=== PATIENT | male | born 1935 | race Caucasian/White ===

== ENCOUNTER 2017-01-07 20:37 | Inpatient (IN) | payer MEDICARE ==
[~2017-01-07] VITALS: Ht 162.6 cm; Wt 64.0 kg
[~2017-01-07 20:37] MED LIST: ALBU8.5H2 IH; ALBUTEROL INH; AMLO5TAB2 PO; ASP81TEC PO; BETH25TA PO; CEPH500C PO; CIPR-225 PO; CLON-378 PO; CPR500T PO; DARI15TA PO; DARI15TA4 PO; DOCU100T7 PO; FAMO20TA5 PO; FINA5TAB6 PO; HYDR-3454 PO; IPRA3AMP IH; LEVO500T2 PO; METO5TAB79 PO; MTP50T PO; MULT-963 PO; MULT-974 PO; NITR-65 PO; NITR100C3 PO; OMEG10005 PO; PEG250PW PO; PHEN200T27 PO; POLY119P4 PO; POLY17PO23 PO; PRD20T PO; RT-COMBINH IH; SENN1TAB76 PO; SIMV20TA3 PO; TAMS0.4C2 PO; VANC750F IV; VITA-185 PO; VITA1CAP47 PO; ZOLP5TAB6 PO; [UNRECOGNIZED DRUG - OTHER]
[2017-01-07] MEDS ORDERED: NS IV 1000 ML 1,000 ML IV ONE (21:01)
[2017-01-07 22:01] LABS: BASOPHILS % (AUTO) 0 % (0-10); EOSINOPHILS % (AUTO) 0 % (0-10); LYMPHOCYTES # (AUTO) 0.4 X 10^3 (1.0-4.0); LYMPHOCYTES % (AUTO) 2 % (12-44); MEAN CORPUSCULAR HEMOGLOBIN 33 PG (25-34); MEAN CORPUSCULAR HGB CONC 33 G/DL (32-36); MEAN CORPUSCULAR VOLUME 101 FL (80-99); MONOCYTES # (AUTO) 2.5 X 10^3 (0.0-1.0); MONOCYTES % (AUTO) 11 % (0-12); NEUTROPHILS # (AUTO) 20.3 X 10^3 (1.8-7.8); NEUTROPHILS % (AUTO) 87 % (42-75); PLATELET COUNT 167 10^3/uL (130-400); RED BLOOD COUNT 4.23 10^6/uL (4.35-5.85); RED CELL DISTRIBUTION WIDTH 12.5 % (10.0-14.5); WHITE BLOOD COUNT 23.2 10^3/uL (4.3-11.0)
[2017-01-07 22:15] LABS: BAND NEUTROPHILS 15 %; BASOPHILS % (MANUAL) 0 %; EOSINOPHILS % (MANUAL) 0 %; LYMPHOCYTES % (MANUAL) 1 %; NEUTROPHILS % (MANUAL) 76 %
[2017-01-07 22:22] LABS: ALBUMIN 3.6 GM/DL (3.2-4.5); BILIRUBIN,TOTAL 0.5 MG/DL (0.1-1.0); CALCIUM 9.1 MG/DL (8.5-10.1); CREATININE SERUM 2.84 MG/DL (0.60-1.30); POTASSIUM 4.8 MMOL/L (3.6-5.0); TOTAL PROTEIN 6.6 GM/DL (6.4-8.2); hs C REACTIVE PROTEIN 0.32 MG/DL (0.00-0.50)
[2017-01-07] MEDS ORDERED: LEVOFLOXACIN IV 750 MG/150 ML (LEVAQUIN) BAG IV ONE (23:45)
[2017-01-08] VITALS (23 sets, daily range): BP systolic 88–156; BP diastolic 14–116
[2017-01-08] MEDS ORDERED: NS IV 1000 ML 1,000 ML ONE (00:55)
[2017-01-08] MEDS ORDERED: NS IV 1000 ML 1,000 ML IV ONE (01:01)
[2017-01-08] MEDS ORDERED: metroNIDAZOLE 500MG/100ML IVPB 100 ML ONE (02:18)
[2017-01-08] MEDS ORDERED: RT-ALBUTEROL/IPRATROPIUM 3 ML (DUONEB) VIAL ONE (02:18)
[2017-01-08] MEDS: NS IV 1000 ML 1,000 ML IV SCH ×5 (02:36→22:33)
[2017-01-08] MEDS ORDERED: RT-ALBUTEROL/IPRATROPIUM 3 ML (DUONEB) VIAL INH PRN (02:45)
[2017-01-08] MEDS ORDERED: DARI15TA PO (03:28)
[2017-01-08] MEDS ORDERED: CLON0.2T PO (03:28)
[2017-01-08] MEDS ORDERED: FINA5TAB6 PO (03:28)
[2017-01-08] MEDS ORDERED: TAMS0.4C2 PO (03:28)
[2017-01-08] MEDS ORDERED: METO50TA2 PO (03:28)
[2017-01-08] MEDS ORDERED: AMLO5TAB2 PO (03:28)
[2017-01-08] MEDS ORDERED: SIMV20TA3 PO (03:28)
[2017-01-08] MEDS ORDERED: ZOLP5TAB7 PO (03:28)
[2017-01-08] MEDS ORDERED: RT-ALBUTEROL HFA (VENTOLIN) PER PUFF IH PRN (03:30)
[2017-01-08 05:00] LABS: BASOPHILS % (AUTO) 0 % (0-10); EOSINOPHILS % (AUTO) 0 % (0-10); LYMPHOCYTES # (AUTO) 0.3 X 10^3 (1.0-4.0); LYMPHOCYTES % (AUTO) 2 % (12-44); MEAN CORPUSCULAR HEMOGLOBIN 34 PG (25-34); MEAN CORPUSCULAR HGB CONC 33 G/DL (32-36); MEAN CORPUSCULAR VOLUME 103 FL (80-99); MEAN PLATELET VOLUME 9.8 FL (7.4-10.4); MONOCYTES # (AUTO) 2.1 X 10^3 (0.0-1.0); MONOCYTES % (AUTO) 10 % (0-12); NEUTROPHILS # (AUTO) 19.6 X 10^3 (1.8-7.8); NEUTROPHILS % (AUTO) 89 % (42-75); PLATELET COUNT 139 10^3/uL (130-400); RED BLOOD COUNT 3.64 10^6/uL (4.35-5.85); RED CELL DISTRIBUTION WIDTH 12.5 % (10.0-14.5); WHITE BLOOD COUNT 22.1 10^3/uL (4.3-11.0)
[2017-01-08 05:23] LABS: BILIRUBIN,TOTAL 0.5 MG/DL (0.1-1.0); CALCIUM 7.8 MG/DL (8.5-10.1); CREATININE SERUM 2.48 MG/DL (0.60-1.30); MAGNESIUM 2.2 MG/DL (1.8-2.4); PHOSPHORUS 3.1 MG/DL (2.3-4.7); POTASSIUM 4.7 MMOL/L (3.6-5.0); TOTAL PROTEIN 5.3 GM/DL (6.4-8.2); hs C REACTIVE PROTEIN 3.84 MG/DL (0.00-0.50)
[2017-01-08] MEDS: POTASSIUM CL 10MEQ/50ML IVPB 50 ML IV SCH (05:27)
[2017-01-08] MEDS: KCL 20 MEQ TAB (K-DUR) PO SCH (05:27)
[2017-01-08] MEDS: MAGNESIUM 1 GM/100 ML IVPB 100 ML IV SCH (05:27)
[2017-01-08] MEDS ORDERED: metroNIDAZOLE 500MG/100ML IVPB 100 ML IV SCH ×2 (06:00)
[2017-01-08] MEDS: RT-ALBUTEROL/IPRATROPIUM 3 ML (DUONEB) VIAL INH SCH ×4 (06:39→21:35)
[2017-01-08] MEDS: ACETAMINOPHEN 325 MG TABLET/CAPLET (TYLENOL) PO PRN ×3 (06:43→22:33)
[2017-01-08] MEDS ORDERED: ZOLPIDEM 5 MG (AMBIEN) TAB PO PRN (07:00)
[2017-01-08] MEDS ORDERED: MULTIVIT W/MINERALS TAB (THERAGRAN M) PO SCH (07:00)
[2017-01-08] MEDS ORDERED: fentaNYL INJECTION 100 MCG/2 ML AMP ONE (07:17)
[2017-01-08] MEDS ORDERED: fentaNYL INJECTION 100 MCG/2 ML AMP IVP PRN (07:45)
[2017-01-08] MEDS: OMEGA 3 (FISH OIL) 1000 MG CAP PO SCH (08:15)
[2017-01-08] MEDS: FINASTERIDE (PROSCAR) 5 MG TAB PO SCH (08:16)
[2017-01-08] MEDS: metroNIDAZOLE 500MG/100ML IVPB 100 ML IV SCH ×3 (08:16→20:34)
[2017-01-08] MEDS: ASPIRIN E.C. 81 MG (ECOTRIN) TAB PO SCH (08:16)
[2017-01-08] MEDS: meTOprolol TARTRATE 50 MG (LOPRESSOR) TAB PO SCH ×2 (08:16→20:34)
[2017-01-08] MEDS: amLODIPine 5 MG (NORVASC) TAB PO SCH (08:16)
[2017-01-08] MEDS: DOCUSATE SODIUM 100 MG (COLACE) CAP PO SCH ×2 (08:21→20:35)
[2017-01-08] MEDS: SENNA W/DOCUSATE (SENOKOT S) TABLET PO SCH (08:22)
[2017-01-08] MEDS: POLYETHYLENE GLYCOL 17 GM (MIRALAX) PACK PO SCH (08:22)
[2017-01-08] MEDS: MULTIVIT W/MINERALS TAB (THERAGRAN M) PO SCH (08:22)
[2017-01-08] MEDS: DARIFENACIN 7.5 MG PO SCH (08:37)
[2017-01-08] MEDS ORDERED: SIMvastatin 20 MG (ZOCOR) TAB PO SCH (09:00)
[2017-01-08] MEDS ORDERED: cloNIDine 0.2 MG (CATAPRES) TAB PO SCH (09:00)
[2017-01-08] MEDS ORDERED: PIPERACILLIN SODIUM/TAZOBACTAM 4.5 GM in NS (IVPB) 100 ML IV NR (09:40)
[2017-01-08 11:14] LABS: BILIRUBIN,URINE NEGATIVE (NEGATIVE); KETONES,URINE NEGATIVE (NEGATIVE); LEUKOCYTE ESTERASE ,URINE 3+ (NEGATIVE); NITRITE,URINE NEGATIVE (NEGATIVE); PH,URINE 6 (5-9); PROTEIN,URINE 3+ (NEGATIVE); UROBILINOGEN,URINE NORMAL (NORMAL)
[2017-01-08 11:29] LABS: WBC,URINE TNTC /HPF
[2017-01-08] MEDS ORDERED: SENN-109 PO (12:38)
[2017-01-08] MEDS ORDERED: DOCU100C37 PO (12:38)
[2017-01-08] MEDS ORDERED: MULT-35 PO (12:38)
[2017-01-08] MEDS ORDERED: ASPI-983 PO (12:38)
[2017-01-08] MEDS ORDERED: VIT59LIQ SL (12:38)
[2017-01-08] MEDS ORDERED: OMG1KC PO (12:38)
[2017-01-08] MEDS ORDERED: POLY17PO6 PO (12:38)
[2017-01-08] MEDS ORDERED: RT-ALBUINH IH (12:41)
[2017-01-08] MEDS: PIPERACILLIN SODIUM/TAZOBACTAM 4.5 GM in NS (IVPB) 100 ML IV SCH (16:39)
[2017-01-08] MEDS: ALFUZOSIN HCL 10 MG TAB (UROXATRAL) PO SCH (16:40)
[2017-01-08] MEDS: cloNIDine 0.1 MG (CATAPRES) TAB PO SCH (20:35)
[2017-01-08] MEDS: fentaNYL INJECTION 100 MCG/2 ML AMP IVP PRN (21:19)
[2017-01-09] VITALS (16 sets, daily range): BP systolic 117–161; BP diastolic 61–85
[2017-01-09] MEDS ORDERED: ONDANSETRON 4 MG/2 ML (SDV) Z0FRAN ONE
[2017-01-09] MEDS: PIPERACILLIN SODIUM/TAZOBACTAM 4.5 GM in NS (IVPB) 100 ML IV SCH ×3 (00:12→16:54)
[2017-01-09] MEDS: NS IV 1000 ML 1,000 ML IV SCH ×4 (00:25→08:46)
[2017-01-09] MEDS: fentaNYL INJECTION 100 MCG/2 ML AMP IVP PRN ×3 (01:57→17:32)
[2017-01-09] MEDS: RT-ALBUTEROL/IPRATROPIUM 3 ML (DUONEB) VIAL INH SCH ×6 (02:06→22:06)
[2017-01-09] MEDS: metroNIDAZOLE 500MG/100ML IVPB 100 ML IV SCH ×4 (02:51→20:14)
[2017-01-09] MEDS: ONDANSETRON 4 MG/2 ML (SDV) Z0FRAN IV PRN ×2 (02:55→08:46)
[2017-01-09 03:44] LABS: BASOPHILS % (AUTO) 0 % (0-10); EOSINOPHILS % (AUTO) 0 % (0-10); LYMPHOCYTES # (AUTO) 0.4 X 10^3 (1.0-4.0); LYMPHOCYTES % (AUTO) 2 % (12-44); MEAN CORPUSCULAR HEMOGLOBIN 33 PG (25-34); MEAN CORPUSCULAR HGB CONC 33 G/DL (32-36); MEAN CORPUSCULAR VOLUME 101 FL (80-99); MEAN PLATELET VOLUME 9.9 FL (7.4-10.4); MONOCYTES # (AUTO) 1.7 X 10^3 (0.0-1.0); MONOCYTES % (AUTO) 11 % (0-12); NEUTROPHILS # (AUTO) 13.8 X 10^3 (1.8-7.8); NEUTROPHILS % (AUTO) 87 % (42-75); PLATELET COUNT 121 10^3/uL (130-400); RED BLOOD COUNT 3.44 10^6/uL (4.35-5.85); RED CELL DISTRIBUTION WIDTH 12.5 % (10.0-14.5); WHITE BLOOD COUNT 15.8 10^3/uL (4.3-11.0)
[2017-01-09 04:05] LABS: CALCIUM 7.7 MG/DL (8.5-10.1); CREATININE SERUM 1.93 MG/DL (0.60-1.30); MAGNESIUM 1.6 MG/DL (1.8-2.4); PHOSPHORUS 2.8 MG/DL (2.3-4.7); POTASSIUM 3.8 MMOL/L (3.6-5.0)
[2017-01-09] MEDS: MAGNESIUM 1 GM/100 ML IVPB 100 ML IV SCH ×3 (04:37→06:54)
[2017-01-09] MEDS: POTASSIUM CL 10MEQ/50ML IVPB 50 ML IV SCH (06:54)
[2017-01-09] MEDS: KCL 20 MEQ TAB (K-DUR) PO SCH (06:54)
[2017-01-09] MEDS: DOCUSATE SODIUM 100 MG (COLACE) CAP PO SCH (08:03)
[2017-01-09] MEDS: POLYETHYLENE GLYCOL 17 GM (MIRALAX) PACK PO SCH ×3 (08:03→20:14)
[2017-01-09] MEDS: OMEGA 3 (FISH OIL) 1000 MG CAP PO SCH (08:04)
[2017-01-09] MEDS: SENNA W/DOCUSATE (SENOKOT S) TABLET PO SCH (08:04)
[2017-01-09] MEDS: MULTIVIT W/MINERALS TAB (THERAGRAN M) PO SCH (08:04)
[2017-01-09] MEDS: meTOprolol TARTRATE 50 MG (LOPRESSOR) TAB PO SCH ×2 (08:46→20:14)
[2017-01-09] MEDS: DARIFENACIN 7.5 MG PO SCH (08:46)
[2017-01-09] MEDS: ASPIRIN E.C. 81 MG (ECOTRIN) TAB PO SCH (08:46)
[2017-01-09] MEDS: FINASTERIDE (PROSCAR) 5 MG TAB PO SCH (08:46)
[2017-01-09] MEDS: cloNIDine 0.1 MG (CATAPRES) TAB PO SCH ×2 (08:47→20:14)
[2017-01-09] MEDS ORDERED: FUROSEMIDE 40 MG/4 ML INJ (LASIX) IVP ONE (09:00)
[2017-01-09] MEDS ORDERED: FUROSEMIDE 40 MG/4 ML INJ (LASIX) IVP NR (09:00)
[2017-01-09] MEDS: amLODIPine 5 MG (NORVASC) TAB PO SCH (09:52)
[2017-01-09] MEDS: SUCRALFATE 1 GM (CARAFATE) TAB PO SCH ×3 (12:29→20:14)
[2017-01-09] MEDS: PANTOPRAZOLE 40 MG/10 ML (PROTONIX) VIAL IV SCH ×2 (12:29→20:14)
[2017-01-09] MEDS: ACETAMINOPHEN 325 MG TABLET/CAPLET (TYLENOL) PO PRN (16:53)
[2017-01-09] MEDS: ALFUZOSIN HCL 10 MG TAB (UROXATRAL) PO SCH (17:32)
[2017-01-10] VITALS: BP 137/65
[2017-01-10] MEDS: PIPERACILLIN SODIUM/TAZOBACTAM 4.5 GM in NS (IVPB) 100 ML IV SCH ×3 (00:19→16:24)
[2017-01-10] MEDS: metroNIDAZOLE 500MG/100ML IVPB 100 ML IV SCH ×4 (01:54→20:49)
[2017-01-10] MEDS: RT-ALBUTEROL/IPRATROPIUM 3 ML (DUONEB) VIAL INH SCH ×3 (02:00→09:59)
[2017-01-10 04:00] VITALS: BP 138/63
[2017-01-10] MEDS: SUCRALFATE 1 GM (CARAFATE) TAB PO SCH ×4 (05:20→20:50)
[2017-01-10 08:00] VITALS: BP 147/70
[2017-01-10] MEDS: cloNIDine 0.1 MG (CATAPRES) TAB PO SCH ×2 (08:22→20:50)
[2017-01-10] MEDS: meTOprolol TARTRATE 50 MG (LOPRESSOR) TAB PO SCH ×2 (08:22→20:50)
[2017-01-10] MEDS: FINASTERIDE (PROSCAR) 5 MG TAB PO SCH (08:22)
[2017-01-10] MEDS: PANTOPRAZOLE 40 MG/10 ML (PROTONIX) VIAL IV SCH ×2 (08:22→20:50)
[2017-01-10] MEDS: ASPIRIN E.C. 81 MG (ECOTRIN) TAB PO SCH (08:22)
[2017-01-10] MEDS: DARIFENACIN 7.5 MG PO SCH (08:22)
[2017-01-10] MEDS: amLODIPine 5 MG (NORVASC) TAB PO SCH (08:22)
[2017-01-10] MEDS: POLYETHYLENE GLYCOL 17 GM (MIRALAX) PACK PO SCH ×2 (08:23→20:49)
[2017-01-10] MEDS ORDERED: LEVOFLOXACIN 500 MG/100 ML IV 100 ML IV SCH (09:00)
[2017-01-10] MEDS ORDERED: FUROSEMIDE 40 MG/4 ML INJ (LASIX) IVP ONE (09:00)
[2017-01-10] MEDS ORDERED: RT-ALBUTEROL SULF 2.5 MG/3 ML PRE-MIX VIAL IH PRN (10:00)
[2017-01-10 12:28] LABS: BASOPHILS % (AUTO) 0 % (0-10); EOSINOPHILS % (AUTO) 0 % (0-10); LYMPHOCYTES # (AUTO) 0.4 X 10^3 (1.0-4.0); LYMPHOCYTES % (AUTO) 3 % (12-44); MEAN CORPUSCULAR HEMOGLOBIN 33 PG (25-34); MEAN CORPUSCULAR HGB CONC 33 G/DL (32-36); MEAN CORPUSCULAR VOLUME 101 FL (80-99); MEAN PLATELET VOLUME 10.2 FL (7.4-10.4); MONOCYTES # (AUTO) 1.1 X 10^3 (0.0-1.0); MONOCYTES % (AUTO) 8 % (0-12); NEUTROPHILS # (AUTO) 11.1 X 10^3 (1.8-7.8); NEUTROPHILS % (AUTO) 88 % (42-75); PLATELET COUNT 125 10^3/uL (130-400); RED BLOOD COUNT 3.33 10^6/uL (4.35-5.85); RED CELL DISTRIBUTION WIDTH 12.7 % (10.0-14.5); WHITE BLOOD COUNT 12.6 10^3/uL (4.3-11.0)
[2017-01-10] MEDS: ACETAMINOPHEN 325 MG TABLET/CAPLET (TYLENOL) PO PRN ×3 (12:34→22:17)
[2017-01-10 12:40] LABS: ALBUMIN 2.8 GM/DL (3.2-4.5); BILIRUBIN,TOTAL 0.6 MG/DL (0.1-1.0); CALCIUM 8.1 MG/DL (8.5-10.1); CREATININE SERUM 2.47 MG/DL (0.60-1.30); POTASSIUM 3.3 MMOL/L (3.6-5.0); TOTAL PROTEIN 5.3 GM/DL (6.4-8.2)
[2017-01-10] MEDS ORDERED: KCL 20 MEQ TAB (K-DUR) PO ONE (13:15)
[2017-01-10] MEDS: RT-ALBUTEROL SULF 2.5 MG/3 ML PRE-MIX VIAL IH SCH ×3 (14:44→22:00)
[2017-01-10 15:35] VITALS: BP 123/66
[2017-01-10] MEDS: ALFUZOSIN HCL 10 MG TAB (UROXATRAL) PO SCH (17:32)
[2017-01-11] VITALS: BP 119/54
[2017-01-11] MEDS: PIPERACILLIN SODIUM/TAZOBACTAM 4.5 GM in NS (IVPB) 100 ML IV SCH ×4 (00:27→23:58)
[2017-01-11] MEDS: metroNIDAZOLE 500MG/100ML IVPB 100 ML IV SCH ×4 (02:33→20:14)
[2017-01-11] MEDS: RT-ALBUTEROL SULF 2.5 MG/3 ML PRE-MIX VIAL IH SCH ×6 (04:42→22:16)
[2017-01-11] MEDS: SUCRALFATE 1 GM (CARAFATE) TAB PO SCH ×4 (06:36→20:14)
[2017-01-11 06:56] VITALS: BP 119/54
[2017-01-11 07:26] LABS: BASOPHILS % (AUTO) 0 % (0-10); EOSINOPHILS # (AUTO) 0.1 10^3/uL (0.0-0.3); EOSINOPHILS % (AUTO) 1 % (0-10); LYMPHOCYTES # (AUTO) 0.6 X 10^3 (1.0-4.0); LYMPHOCYTES % (AUTO) 6 % (12-44); MEAN CORPUSCULAR HEMOGLOBIN 33 PG (25-34); MEAN CORPUSCULAR HGB CONC 33 G/DL (32-36); MEAN CORPUSCULAR VOLUME 100 FL (80-99); MEAN PLATELET VOLUME 10.7 FL (7.4-10.4); MONOCYTES # (AUTO) 1.1 X 10^3 (0.0-1.0); MONOCYTES % (AUTO) 11 % (0-12); NEUTROPHILS # (AUTO) 7.6 X 10^3 (1.8-7.8); NEUTROPHILS % (AUTO) 81 % (42-75); PLATELET COUNT 139 10^3/uL (130-400); RED BLOOD COUNT 3.24 10^6/uL (4.35-5.85); RED CELL DISTRIBUTION WIDTH 12.6 % (10.0-14.5); WHITE BLOOD COUNT 9.4 10^3/uL (4.3-11.0)
[2017-01-11] MEDS ORDERED: INFLUENZA TRIvalent 2017-2018 0.5 ML/45 MCG SYR IM ONE (07:30)
[2017-01-11 07:47] LABS: ALBUMIN 2.8 GM/DL (3.2-4.5); BILIRUBIN,TOTAL 0.4 MG/DL (0.1-1.0); CREATININE SERUM 2.66 MG/DL (0.60-1.30); POTASSIUM 3.2 MMOL/L (3.6-5.0); TOTAL PROTEIN 5.3 GM/DL (6.4-8.2)
[2017-01-11 08:00] VITALS: BP 139/83
[2017-01-11] MEDS: PANTOPRAZOLE 40 MG/10 ML (PROTONIX) VIAL IV SCH ×2 (08:43→20:08)
[2017-01-11] MEDS: POLYETHYLENE GLYCOL 17 GM (MIRALAX) PACK PO SCH ×2 (08:43→20:14)
[2017-01-11] MEDS: cloNIDine 0.1 MG (CATAPRES) TAB PO SCH ×2 (08:44→20:14)
[2017-01-11] MEDS: meTOprolol TARTRATE 50 MG (LOPRESSOR) TAB PO SCH ×2 (08:44→20:14)
[2017-01-11] MEDS: FINASTERIDE (PROSCAR) 5 MG TAB PO SCH (08:44)
[2017-01-11] MEDS: amLODIPine 5 MG (NORVASC) TAB PO SCH (08:44)
[2017-01-11] MEDS: DARIFENACIN 7.5 MG PO SCH (08:44)
[2017-01-11] MEDS: ASPIRIN E.C. 81 MG (ECOTRIN) TAB PO SCH (08:44)
[2017-01-11] MEDS: KCL 10 MEQ TAB (MICRO K) PO SCH ×3 (12:01→20:14)
[2017-01-11 16:00] VITALS: BP 119/56
[2017-01-11] MEDS: ALFUZOSIN HCL 10 MG TAB (UROXATRAL) PO SCH (17:45)
[2017-01-11 20:12] VITALS: BP 143/63
[2017-01-11 23:56] VITALS: BP 136/60
[2017-01-12] MEDS: metroNIDAZOLE 500MG/100ML IVPB 100 ML IV SCH ×4 (02:21→20:05)
[2017-01-12] MEDS: RT-ALBUTEROL SULF 2.5 MG/3 ML PRE-MIX VIAL IH SCH ×6 (02:40→21:46)
[2017-01-12] MEDS: SUCRALFATE 1 GM (CARAFATE) TAB PO SCH ×4 (05:53→20:46)
[2017-01-12 06:19] LABS: BASOPHILS % (AUTO) 0 % (0-10); EOSINOPHILS # (AUTO) 0.2 10^3/uL (0.0-0.3); EOSINOPHILS % (AUTO) 2 % (0-10); LYMPHOCYTES # (AUTO) 0.5 X 10^3 (1.0-4.0); LYMPHOCYTES % (AUTO) 6 % (12-44); MEAN CORPUSCULAR HEMOGLOBIN 33 PG (25-34); MEAN CORPUSCULAR HGB CONC 33 G/DL (32-36); MEAN CORPUSCULAR VOLUME 99 FL (80-99); MEAN PLATELET VOLUME 10.3 FL (7.4-10.4); MONOCYTES # (AUTO) 0.9 X 10^3 (0.0-1.0); MONOCYTES % (AUTO) 10 % (0-12); NEUTROPHILS % (AUTO) 82 % (42-75); PLATELET COUNT 144 10^3/uL (130-400); RED CELL DISTRIBUTION WIDTH 12.8 % (10.0-14.5); WHITE BLOOD COUNT 8.6 10^3/uL (4.3-11.0)
[2017-01-12 06:44] LABS: ALBUMIN 2.9 GM/DL (3.2-4.5); BILIRUBIN,TOTAL 0.4 MG/DL (0.1-1.0); CALCIUM 8.2 MG/DL (8.5-10.1); CREATININE SERUM 2.61 MG/DL (0.60-1.30); POTASSIUM 3.1 MMOL/L (3.6-5.0); TOTAL PROTEIN 5.5 GM/DL (6.4-8.2)
[2017-01-12 07:48] VITALS: BP 153/64
[2017-01-12] MEDS: meTOprolol TARTRATE 50 MG (LOPRESSOR) TAB PO SCH ×2 (08:06→20:46)
[2017-01-12] MEDS: amLODIPine 5 MG (NORVASC) TAB PO SCH (08:06)
[2017-01-12] MEDS: FINASTERIDE (PROSCAR) 5 MG TAB PO SCH (08:06)
[2017-01-12] MEDS: PANTOPRAZOLE 40 MG/10 ML (PROTONIX) VIAL IV SCH ×2 (08:07→20:45)
[2017-01-12] MEDS: PIPERACILLIN SODIUM/TAZOBACTAM 4.5 GM in NS (IVPB) 100 ML IV SCH (08:07)
[2017-01-12] MEDS: DARIFENACIN 7.5 MG PO SCH (08:07)
[2017-01-12] MEDS: cloNIDine 0.1 MG (CATAPRES) TAB PO SCH ×2 (08:07→20:46)
[2017-01-12] MEDS: ASPIRIN E.C. 81 MG (ECOTRIN) TAB PO SCH (08:07)
[2017-01-12] MEDS: KCL 10 MEQ TAB (MICRO K) PO SCH ×3 (08:07→20:46)
[2017-01-12] MEDS: POLYETHYLENE GLYCOL 17 GM (MIRALAX) PACK PO SCH ×2 (08:08→20:48)
[2017-01-12] MEDS: ACETAMINOPHEN 325 MG TABLET/CAPLET (TYLENOL) PO PRN ×2 (12:40→20:45)
[2017-01-12 16:00] VITALS: BP 133/63
[2017-01-12] MEDS: ALFUZOSIN HCL 10 MG TAB (UROXATRAL) PO SCH (17:34)
[2017-01-12] MEDS ORDERED: PIPERACILLIN SODIUM/TAZOBACTAM 4.5 GM in NS (IVPB) 100 ML IV SCH (20:00)
[2017-01-13 00:05] VITALS: BP 109/58
[2017-01-13] MEDS: RT-ALBUTEROL SULF 2.5 MG/3 ML PRE-MIX VIAL IH SCH ×2 (02:12→06:59)
[2017-01-13] MEDS: metroNIDAZOLE 500MG/100ML IVPB 100 ML IV SCH ×2 (02:35→08:31)
[2017-01-13] MEDS: SUCRALFATE 1 GM (CARAFATE) TAB PO SCH (06:05)
[2017-01-13 06:32] LABS: BILIRUBIN,TOTAL 0.4 MG/DL (0.1-1.0); CALCIUM 8.2 MG/DL (8.5-10.1); CREATININE SERUM 2.41 MG/DL (0.60-1.30); MAGNESIUM 1.5 MG/DL (1.8-2.4); POTASSIUM 3.3 MMOL/L (3.6-5.0); TOTAL PROTEIN 5.6 GM/DL (6.4-8.2)
[2017-01-13] MEDS: PANTOPRAZOLE 40 MG/10 ML (PROTONIX) VIAL IV SCH (08:30)
[2017-01-13] MEDS: DARIFENACIN 7.5 MG PO SCH (08:30)
[2017-01-13] MEDS: cloNIDine 0.1 MG (CATAPRES) TAB PO SCH (08:31)
[2017-01-13] MEDS: KCL 10 MEQ TAB (MICRO K) PO SCH (08:31)
[2017-01-13] MEDS: amLODIPine 5 MG (NORVASC) TAB PO SCH (08:31)
[2017-01-13] MEDS: POLYETHYLENE GLYCOL 17 GM (MIRALAX) PACK PO SCH ×2 (08:31→08:37)
[2017-01-13] MEDS: meTOprolol TARTRATE 50 MG (LOPRESSOR) TAB PO SCH (08:31)
[2017-01-13] MEDS: FINASTERIDE (PROSCAR) 5 MG TAB PO SCH (08:31)
[2017-01-13] MEDS: ASPIRIN E.C. 81 MG (ECOTRIN) TAB PO SCH (08:31)
[2017-01-13] MEDS ORDERED: metroNIDAZOLE 500MG/100ML IVPB 100 ML IV SCH (14:30)
== END 2017-01-13 08:55 | disposition swing bed (61) | DRG 871 ==
LOC: EDUNIT# 20:37 → ER 20:38 → ICU 01-08 00:02 → 4TH 01-08 00:02 → ICU 01-08 09:22 → 4TH 01-09 11:10
PROVIDERS: ADMIT Family Medicine; ATTEND Family Medicine
DX: A41.9 Sepsis, unspecified organism (principal); K57.33 Diverticulitis of large intestine without perforation or abscess with bleeding; K55.9 Vascular disorder of intestine, unspecified; A04.9 Bacterial intestinal infection, unspecified; N39.0 Urinary tract infection, site not specified; B95.2 Enterococcus as the cause of diseases classified elsewhere; N17.9 Acute kidney failure, unspecified; I12.9 Hypertensive chronic kidney disease with stage 1 through stage 4 chronic kidney disease, or unspecified chronic kidney disease; N18.4 Chronic kidney disease, stage 4 (severe); K43.2 Incisional hernia without obstruction or gangrene; J44.9 Chronic obstructive pulmonary disease, unspecified; J30.2 Other seasonal allergic rhinitis; F17.290 Nicotine dependence, other tobacco product, uncomplicated; E78.00 Pure hypercholesterolemia, unspecified; I73.9 Peripheral vascular disease, unspecified; E87.6 Hypokalemia; N40.1 Benign prostatic hyperplasia with lower urinary tract symptoms; R39.15 Urgency of urination; M19.91 Primary osteoarthritis, unspecified site; Z86.14 Personal history of Methicillin resistant Staphylococcus aureus infection; Z86.79 Personal history of other diseases of the circulatory system; Z95.820 Peripheral vascular angioplasty status with implants and grafts; Z99.81 Dependence on supplemental oxygen; Z98.890 Other specified postprocedural states
CPT/HCPCS: 36415; 71010; 74176; 80048; 80053; 81000; 82274; 83605; 83735; 84100; 85007; 85014; 85018; 85025; 85027; 86141; 87040; 87077; 87081; 87088; 87186; 87324; 87449; 94640; 94760; 96361; 96365

== ENCOUNTER 2017-01-13 08:56 | Inpatient (IN) | payer MEDICARE ==
[~2017-01-13] VITALS: Ht 162.6 cm; Wt 63.3 kg
[~2017-01-13 08:56] MED LIST changes: +ASPI-983 PO; +CLON0.2T PO; +DOCU100C37 PO; +METO50TA2 PO; +MULT-35 PO; +OMG1KC PO; +POLY17PO6 PO; +RT-ALBUINH IH; +SENN-109 PO; +VIT59LIQ SL; +ZOLP5TAB7 PO
[2017-01-13] MEDS ORDERED: ZOLPIDEM 5 MG (AMBIEN) TAB PO PRN (09:33)
[2017-01-13] MEDS ORDERED: ACETAMINOPHEN 325 MG TABLET/CAPLET (TYLENOL) PO PRN (09:33)
[2017-01-13] MEDS ORDERED: RT-ALBUTEROL SULF 2.5 MG/3 ML PRE-MIX VIAL IH PRN ×2 (09:33→11:00)
[2017-01-13] MEDS ORDERED: fentaNYL INJECTION 100 MCG/2 ML AMP IVP PRN (09:33)
[2017-01-13] MEDS ORDERED: RT-ALBUTEROL HFA (VENTOLIN) PER PUFF IH PRN (09:33)
[2017-01-13] MEDS ORDERED: ONDANSETRON 4 MG/2 ML (SDV) Z0FRAN IV PRN (09:33)
[2017-01-13] MEDS ORDERED: metroNIDAZOLE 500MG/100ML IVPB 100 ML IV SCH ×2 (09:36→14:30)
[2017-01-13] MEDS: PIPERACILLIN SODIUM/TAZOBACTAM 4.5 GM in NS (IVPB) 100 ML IV SCH ×2 (09:46→21:29)
[2017-01-13] MEDS ORDERED: PIPERACILLIN SODIUM/TAZOBACTAM 4.5 GM in NS (IVPB) 100 ML IV SCH ×2 (10:00→20:00)
--- NOTE | 2017-01-13 10:56 | Physical Therapy Progress Note ---
Therapy Progress Note Patient declined PT this a.m. due to incontinence of bowel. PT will attempt in p.m. 1 ref RONALD FRIEDMAN PT Jan 13, 2017 10:56
[2017-01-13] MEDS: RT-ALBUTEROL SULF 2.5 MG/3 ML PRE-MIX VIAL IH SCH ×4 (11:06→23:04)
[2017-01-13] MEDS: SUCRALFATE 1 GM (CARAFATE) TAB PO SCH ×3 (11:33→20:16)
[2017-01-13] MEDS: KCL 10 MEQ TAB (MICRO K) PO SCH ×2 (13:21→17:17)
[2017-01-13] MEDS ORDERED: RT-ALBUTEROL SULF 2.5 MG/3 ML PRE-MIX VIAL IH SCH (14:00)
--- NOTE | 2017-01-13 14:02 | Physical Therapy Evaluation ---
PT Evaluation-General Medical Diagnosis Admission Date Jan 13, 2017 at 08:56 Medical Diagnosis: GI Bleed/sepsis Onset Date: Jan 07, 2017 Therapy Diagnosis Therapy Diagnosis: generalized weakness/debility Height/Weight Height (Feet): 5 Height (Inches): 4.00 Weight (Pounds): 139 Weight (Ounces): 9.0 Precautions Precautions/Isolations: Fall Prevention, Standard Precautions Referral Physician: Dmitri Reason for Referral: Evaluation/Treatment Medical History Pertinent Medical History: COPD, HTN, Renal Insufficiency, Smoking Additional Medical History UTI Current History SWB status Reviewed History: Yes Social History Home: Single Level Current Living Status: Spouse Entry Into Home: Stairs With Railing Prior/Core FIM Prior Level of Function Functional [place] Measure 0=Not Assessed/NA 4=Minimal Assistance 1=Total Assistance 5=Supervision or Setup 2=Maximal Assistance 6=Modified [place] 3=Moderate Assistance 7=Complete [place] Bed Mobility: 7 Transfers (B,C,W/C) (FIM): 7 Gait: 7 PT Evaluation-Current Subjective Patient agrees to PT. Pain Numeric Pain Scale: 0-No Pain Location: No Pain Reported Objective Patient Orientation: Normal For Age Problem Solving: Good Attachments: IV ROM/Strength ROM Lower Extremities bilateral LE WNL Strenght Lower Extremities bilateral LE WNL Integumentary/Posture Integumentary refer to nursing notes Bowel Incontinence: No Bladder Incontinence: No Posture kyphotic Neuromuscular (Tone, Coordination, Reflexes) grossly intact Sensory Vision: Wears Glasses Hearing: Functional Sensation Right Lower Extremit: Intact Sensation Left Lower Extremity: Intact Transfers Functional [place] Measure 0=Not Assessed/NA 4=Minimal Assistance 1=Total Assistance 5=Supervision or Setup 2=Maximal Assistance 6=Modified [place] 3=Moderate Assistance 7=Complete [place] Transfers (B, C, W/C) (FIM): 5 Scootin Rollin Supine to/from Sit: 5 Sit to/from Stand: 5 Sit to Lying (QC): 4 Lying to Sitting/Side of Bed(Q: 4 Sit to Stand (QC): 4 Chair/Wwl-ch-Zlbzs Xfer(QC): 4 Gait Does the Patient Walk?: Yes Mode of Locomotion: Walk Anticipated Mode of Locomotion: Walk Gait (FIM): 5 Distance (FIM): 3=150 ft Distance: 300' Walk 50 ft with 2 Turns(QC): 4 Walk 150 ft (QC): 4 Gait Level of Assist: 5 Gait Persons Needed: 1 Gait Assistive Device: FWW Comments/Gait Description slow/3 standing recovery periods due to increase in SOA secondary to COPD Balance Sitting Static: Normal Sitting Dynamic: Normal Standing Static: Normal Standing Dynamic: Normal Treatment Gait training with FWW SBA x 300' with Good/Normal balance and steady amilcar. Patient requires recovery periods due to increase in SOA. Assessment/Needs 81 y.o. male, will benefit from skilled PT to address functional strength and mobility to improve current LOF and to return to home with spouse at maximum LOF. Rehab Potential: Good PT Plan Problem List Problem List: Activity Tolerance, Functional Strength, Gait Treatment/Plan Treatment Plan: Continue Plan of Care Treatment Plan: Bed Mobility, Education, Functional Activity [place], Functional Strength, Gait, Safety, Therapeutic Exercise, Transfers Treatment Duration: Feb 06, 2017 Frequency: 6 times per week Estimated Hrs Per Day: .25 hour per day Patient and/or Family Agrees t: Yes Safety Risks/Education Patient Education: Gait Training, Safety Issues Teaching Recipient: Patient, Family Teaching Methods: Discussion Response to Teaching: Verbalize Understanding Discharge Recommendations Therapy D/C Recommendations: Home w/ Family Support Time/GCodes Time In: 1257 Time Out: 1321 Total Billed Treatment Time: 24 Total Billed Treatment 1 visit Jim 9 min GT 15 min RONALD FRIEDMAN PT Jan 13, 2017 14:02
[2017-01-13] MEDS: metroNIDAZOLE 500MG/100ML IVPB 100 ML IV SCH ×2 (14:30→20:16)
--- NOTE | 2017-01-13 14:55 | Occupational Therapy Eval ---
OT Evaluation-General/PLF Medical Diagnosis Admission Date Jan 13, 2017 at 08:56 Medical Diagnosis: GI Bleed/sepsis Onset Date: Jan 07, 2017 Therapy Diagnosis Therapy Diagnosis: weakness Height/Weight Height (Feet): 5 Height (Inches): 4.00 Weight (Pounds): 139 Weight (Ounces): 9.0 Precautions Precautions/Isolations: Fall Prevention, Standard Precautions Referral Physician: Dmitri Referral Reason: Evaluation/Treatment Medical History Pertinent Medical History: Arthritis, COPD, HTN, PVD, Renal Insufficiency, Smoking Additional Medical History AAA surgery, JJ stent, bilat LE grafts for circulation, COPD O2 dependant, BPH, chronic UTI, abdominal hernia surgery, diverticulosis, hx MRSA, 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 Current History Admitted to acute care with sepsis, colitis, renal failure, hypotension, UTI Reviewed History: Yes Social History Home: Single Level Current Living Status: Spouse Entry Into Home: Stairs With Railing ADL-Prior Level of Function ADL PLOF Comments Pt reported that he has been independent with all of his basic self care needs. He is retired. OT Current Status Subjective Pt seen in room, up in bed, agreeable to OT. Pain reported 0/10 Appearance Alert, cooperative Mental Status/Objective Attachments: IV Current Dentures/Partials: Yes Upper Extremity ROM Grossly WFL bilat Upper Extremity Strength Grossly 4/5 bilat Pt reported that he has been doing theraband exercises "every day for 5 years" but he doesn't have bands here. He would like to be able to do them in his room to keep up his strength. ADL-Treatment ADL-Current Pt reported that he has been taking himself to the bathroom, cleaning his dentures and feeding himself with no assistance. He was not interested in ADLs but would like theraband exercises to maintain and increase his arm strength and activity tolerance. Functional [place] Measure 0=Not Assessed/NA 4=Minimal Assistance 1=Total Assistance 5=Supervision or Setup 2=Maximal Assistance 6=Modified [place] 3=Moderate Assistance 7=Complete IndependenceIRFPAI Quality Coding Scale 6 Independent with activity with or without an assistive device 5 Patient requires set up or clean up by helper. Patient completes activity by themselves 4 Supervision or touching assist (CGA). [place] provide cues , steadying assist 3 The helper provides less than half the effort to complete the activity 2 The helper provides more than half the effort to complete the activity 1 Dependent. The helper does all the effort to complete an activity 7 Patient refused to complete or attempt activity 9 The patient did not perform the activity before the current illness or injury 88 Not attempted due to Medical conditions or safety concerns Eating (FIM): 6 (Pt report. dentures) Eating (QC): 6 (Pt report. dentures) Grooming (FIM): 6 (Pt report. FWW) Oral Hygiene (QC): 6 (Pt report. FWW) Toileting (FIM): 6 (Pt report. Tall toilet, grab bars, FWW) Toileting Hygiene (QC): 6 (Pt report. Tall toilet, grab bars, FWW) Toilet/Commode Transfer (FIM): 6 (Pt report. Tall toilet, grab bars, FWW) Toilet Transfer (QC): 6 (Pt report. Tall toilet, grab bars, FWW) Other Treatments pt was provided with red (medium resistance) theraband and he demonstrated at least three different exercises that he does. He reported that he typically did 2 sets of 25 reps and he was encouraged to drop pack to 15 reps and then do 2-3 sets. He also was encouraged to take recovery breaks between exercises due to COPD. He was told that, if the exercise caused his IV to beep that he should stop exercising for the time. Pt left up in bed, all needs met. Education OT Patient Education: Exercise program Teaching Recipient: Patient Teaching Methods: Discussion Response to Teaching: Verbalize Understanding OT Hospice Massage Therapist Goals Hospice Massage Therapist Goals Time Frame: Jan 20, 2017 Pt will be independent in home exercise program for UE strengthening. Additional Goals: 3-ImproveStrength/[place] 3=Patient will improve strength/tolerance for activity to enable patient to perform ADL's. OT Education/Plan Problem List/Assessment Assessment: Decreased Activ Tolerance, Decreased UE Strength Pt seen for skilled OT to increase his independence in home exercise program to maintain and increase his strength and activity tolerance to allow him to safely return home to live with his . Discharge Recommendations Plan/Recommendations: Continue POC Treatment Plan/Plan of Care Treatment,Training & Education: Yes Patient would benefit from OT for education, treatment and training to promote independence in ADL's, mobility, safety and/or upper extremity function for ADL' s. Plan of Care: UE Funct Exercise/Act Treatment Duration: Jan 20, 2017 Frequency: 5 times per week Estimated Hrs Per Day: .25 hour per day Agreement: Yes Rehab Potential: Good Time/GCodes Start Time: 14:25 Stop Time: 14:35 Total Time Billed (hr/min): 10 Billed Treatment Time visit, 10 minutes evaluation low intensity JUNG CONTI OT Jan 13, 2017 14:54
[2017-01-13] MEDS: ALFUZOSIN HCL 10 MG TAB (UROXATRAL) PO SCH (17:17)
[2017-01-13 17:55] VITALS: BP 146/73
[2017-01-13] MEDS: cloNIDine 0.1 MG (CATAPRES) TAB PO SCH (20:16)
[2017-01-13] MEDS: POLYETHYLENE GLYCOL 17 GM (MIRALAX) PACK PO SCH (20:16)
[2017-01-13] MEDS: PANTOPRAZOLE 40 MG/10 ML (PROTONIX) VIAL IV SCH (20:16)
[2017-01-13] MEDS: meTOprolol TARTRATE 50 MG (LOPRESSOR) TAB PO SCH (20:16)
[2017-01-13 20:19] VITALS: BP 143/70
[2017-01-14] MEDS: metroNIDAZOLE 500MG/100ML IVPB 100 ML IV SCH ×4 (02:53→20:31)
[2017-01-14] MEDS: RT-ALBUTEROL SULF 2.5 MG/3 ML PRE-MIX VIAL IH SCH ×6 (03:04→22:48)
[2017-01-14 05:55] LABS: RED BLOOD COUNT 3.25 10^6/uL (4.35-5.85); WHITE BLOOD COUNT 9.5 10^3/uL (4.3-11.0)
[2017-01-14 06:15] LABS: CALCIUM 8.1 MG/DL (8.5-10.1); CREATININE SERUM 2.27 MG/DL (0.60-1.30); POTASSIUM 3.7 MMOL/L (3.6-5.0)
[2017-01-14 06:28] LABS: ALBUMIN 2.7 GM/DL (3.2-4.5); BILIRUBIN,TOTAL 0.3 MG/DL (0.1-1.0)
[2017-01-14] MEDS: SUCRALFATE 1 GM (CARAFATE) TAB PO SCH ×4 (06:41→20:31)
[2017-01-14] MEDS: KCL 10 MEQ TAB (MICRO K) PO SCH ×3 (06:41→17:23)
[2017-01-14 08:00] VITALS: BP 151/73
[2017-01-14 08:17] VITALS: BP 151/73
--- NOTE | 2017-01-14 08:46 | Progress Note (SOAP) ---
Subjective Date Seen by Provider: Jan 14, 2017 Time Seen by Provider: 09:00 Subjective/Events-last exam PT REPORTS THAT HE IS FEELING FATIGUED, BUT IT IS BETTER DAY BY DAY. HE REPORTS THAT HE DOES FEEL LIKE HIS BREATHING IS A LITTLE WORSE TODAY - HE HAS TROUBLE WITH HUMID WEATHER. Review of Systems General: Fatigue HEENT: No Head Aches Pulmonary: Dyspnea, No Cough Cardiovascular: No: Chest Pain Gastrointestinal: No: Nausea, Abdominal Pain Genitourinary: No Dysuria Neurological: Weakness, No: Confusion Objective Exam Vital Signs Date Time Temp Pulse Resp B/P (MAP) Pulse Ox O2 Delivery O2 Flow Rate FiO2 01/14/17 08:17 98.2 78 20 151/73 94 Room Air 01/14/17 08:09 94 Room Air 01/14/17 08:00 98.2 78 20 151/73 94 Room Air 01/14/17 03:05 92 Room Air 01/13/17 23:04 91 Room Air 01/13/17 20:20 95 Room Air 01/13/17 20:19 98.0 98 18 143/70 95 Room Air 01/13/17 18:59 94 Room Air 01/13/17 17:55 97.6 94 20 146/73 95 Room Air 01/13/17 15:17 92 Room Air 01/13/17 11:06 92 Room Air 01/13/17 10:54 87 21 Capillary Refill : General Appearance: No Apparent Distress, WD/WN HEENT: PERRL/EOMI Neck: Full Range of Motion, Supple Respiratory: Chest Non Tender, Decreased Breath Sounds, Wheezing Cardiovascular: Regular Rate, Rhythm, Systolic Murmur Gastrointestinal: normal bowel sounds, non tender, soft, no organomegaly Extremity: Normal Capillary Refill, No Pedal Edema Neurologic/Psychiatric: Alert, Oriented x3, No Motor/Sensory Deficits, Normal Mood/Affect Skin: Warm/Dry Lymphatic: No Adenopathy Results Lab Laboratory Tests 01/14/17 05:34: White Blood Count 9.5, Red Blood Count 3.25L, Hemoglobin 10.6L, Hematocrit 32L, Mean Corpuscular Volume 99, Mean Corpuscular Hemoglobin 33, Mean Corpuscular Hemoglobin Concent 33, Red Cell Distribution Width 13.0, Platelet Count 161, Mean Platelet Volume 10.0, Sodium Level 140, Potassium Level 3.7, Chloride Level 114H, Carbon Dioxide Level 17L, Anion Gap 9, Blood Urea Nitrogen 18, Creatinine 2.27H, Estimat Glomerular Filtration Rate 28, BUN/Creatinine Ratio 8 , Glucose Level 106H, Calcium Level 8.1L, Total Bilirubin 0.3, Aspartate Amino Transf (AST/SGOT) 25, Alanine Aminotransferase (ALT/SGPT) 24, Alkaline Phosphatase 37L, Total Protein 5.0L, Albumin 2.7L Assessment/Plan Assessment/Plan Assess & Plan/Chief Complaint SIGMOID DIVERTICULITIS COLITIS LOWER GI BLEED ACUTE ON CHRONIC RENAL FAILURE - STAGE 4 UTI ELEVATED WHITE COUNT SEPSIS ELEVATING LACTIC ACID HYPOTENSION (CHRONIC HYPERTENSION) TACHYCARDIA HX OF EXTENSIVE ABDOMINAL WALL SURGERIES WITH LARGE VENTRAL HERNIA COPD SIGMOID DIVERTICULITIS AND COLITIS WITH ACUTE LOWER GI BLEED - PT ON FLAGYL AND ZOSYN -HEMATOCHEZIA HAS RESOLVED - STILL WITH LEFT LOWER QUAD ABDOMINAL PAIN - CONTINUE WITH ZOSYN. DISCUSSED WITH PHARMACY CONTINUE WITH ZOSYN AT 4.5 GRAM Q12 HOURS. ACUTE ON CHRONIC RENAL FAILURE - STAGE 4 - - WILL MONITOR CREATININE AND TREAT CONSERVATIVELY POSSIBLE WITH RENAL ADJUSTMENTS OF HIS MEDICATIONS. ELEVATED WHITE COUNT - IMPROVING - MONITOR WHITE COUNT, DAILY. UTI - ENTEROCOCCAL - PT ON ZOSYN. CONTINUE WITH CURRENT TREATMENT - WILL FINISH TREATMENT ON 01/16/17 SEPSIS - SYMPTOMS RESOLVED, DECREASE IV FLUIDS HYPOTENSION (CHRONIC HYPERTENSION) - BLOOD PRESSURE IMPROVED AFTER HYDRATING PATIENT, MONITOR BLOOD PRESSURE - RESTARTED TOPROL, PARAMETERS ON CLONIDINE AND NORVASC ADDED. TACHYCARDIA - MULTIFACTORIAL - CONTINUE WITH TOPROL. HX OF EXTENSIVE ABDOMINAL WALL SURGERIES WITH LARGE VENTRAL HERNIA - WE WILL TRY TO BE CONSERVATIVE POSSIBLE WITH ATTENTION TO HIS GI TRACT AND AVOIDANCE OF SURGERY. COPD - CHRONIC - OXYGEN DEPENDENT PER PREVIOUS PROVIDER NOTES. - PT TO HAVE A SOLUMEDROL INJECTION TODAY - CONTINUE WITH BREATHING TREATMENTS - MONITOR SYMPTOMS TOMORROW. DVT PROPHYLAXIS WITH SCD'S - NO LOVENOX DUE TO GI BLEEDING GI PROPHYLAXIS WITH PPI. Clinical Quality Measures DVT/VTE Risk/Contraindication: Risk Factor Score Per Nursin RFS Level Per Nursing on Admit: 4+=Very High Contraindications-Pharm: Other *list below* Other: PT HAD AN ACUTE GI BLEED SUNNY SAUCEDA MD Jan 14, 2017 08:46
[2017-01-14] MEDS: DARIFENACIN 7.5 MG PO SCH (08:49)
[2017-01-14] MEDS: cloNIDine 0.1 MG (CATAPRES) TAB PO SCH ×2 (08:49→20:31)
[2017-01-14] MEDS: meTOprolol TARTRATE 50 MG (LOPRESSOR) TAB PO SCH ×2 (08:50→20:31)
[2017-01-14] MEDS: ASPIRIN E.C. 81 MG (ECOTRIN) TAB PO SCH (08:50)
[2017-01-14] MEDS: amLODIPine 5 MG (NORVASC) TAB PO SCH (08:50)
[2017-01-14] MEDS: POLYETHYLENE GLYCOL 17 GM (MIRALAX) PACK PO SCH ×2 (08:51→20:31)
[2017-01-14] MEDS: FINASTERIDE (PROSCAR) 5 MG TAB PO SCH (08:59)
[2017-01-14] MEDS: PANTOPRAZOLE 40 MG/10 ML (PROTONIX) VIAL IV SCH ×2 (08:59→20:31)
[2017-01-14] MEDS ORDERED: methylPREDNISolone 40 MG/ML (Solu-MEDROL) VIAL IV NR (09:30)
--- NOTE | 2017-01-14 10:05 | Physical Therapy Daily Note ---
PT Daily Note-Current Subjective Pt sitting at EOB upon arrival. Pt agrees to PT for walking. Pain Location: No Pain Reported Mental Status Patient Orientation: Person, Place, Situation Attachments: IV Pt gets SOA but is not on O2. Pt requires short rest/recovery breaks during tx. Transfers Functional [place] Measure 0=Not Assessed/NA 4=Minimal Assistance 1=Total Assistance 5=Supervision or Setup 2=Maximal Assistance 6=Modified [place] 3=Moderate Assistance 7=Complete IndependenceIRFPAI Quality Coding Scale 6 Independent with activity with or without an assistive device 5 Patient requires set up or clean up by helper. Patient completes activity by themselves 4 Supervision or touching assist (CGA). [place] provide cues , steadying assist 3 The helper provides less than half the effort to complete the activity 2 The helper provides more than half the effort to complete the activity 1 Dependent. The helper does all the effort to complete an activity 7 Patient refused to complete or attempt activity 9 The patient did not perform the activity before the current illness or injury 88 Not attempted due to Medical conditions or safety concerns Scootin Sit to/from Stand: 5 Sit to Stand (QC): 5 Weight Bearing Right Lower Extremity: Right Full Weight Bearing Left Lower Extremity: Left Full Weight Bearing Gait Training Does the Patient Walk?: Yes Distance (FIM): 3=150 ft Distance: 225' Walk 50 ft with 2 Turns(QC): 5 Walk 150 ft (QC): 5 Gait Level of Assist: 5 Gait Persons Needed: 1 Gait Assistive Device: FWW Pt walks with slow amilcar and fatigues easy. Pt needs recovery breaks during ambulation but no LOB. Wheelchair Training Does the Pt Use a Wheelchair?: No Treatments Pt transferred from EOB to standing using FWW at close SBA-CGA. Pt ambulates in hallway using FWW at close SBA-CGA. Pt requires a couple of standing rest breaks and one sitting break in chair. Pt returns to room to rest in recliner at end of tx with all needs met. Assessment Current Status: Good Progress Pt is ambulating well but fatigues easy and needs rest breaks. PT Almond Grinder Goals Almond Grinder Goals Rollin PT Plan Problem List Problem List: Activity Tolerance, Safety, Gait Treatment/Plan Treatment Plan: Continue Plan of Care Treatment Plan: Bed Mobility, Education, Functional Activity [place], Functional Strength, Gait, Safety, Therapeutic Exercise, Transfers Treatment Duration: Feb 06, 2017 Frequency: 6 times per week Estimated Hrs Per Day: .25 hour per day Patient and/or Family Agrees t: Yes Safety Risks/Education Patient Education: Gait Training, Transfer Techniques, Correct Positioning, Safety Issues Teaching Recipient: Patient Teaching Methods: Discussion Response to Teaching: Verbalize Understanding Time/GCodes Time In: 915 Time Out: 940 Total Billed Treatment Time: 25 Total Billed Treatment visit, GT x2 (25m) RHINA KLINE PTA Jan 14, 2017 10:05
[2017-01-14] MEDS: PIPERACILLIN SODIUM/TAZOBACTAM 4.5 GM in NS (IVPB) 100 ML IV SCH ×2 (10:38→21:46)
--- NOTE | 2017-01-14 11:23 | Occupational Ther Daily Note ---
OT Current Status-Daily Note Subjective Pt sitting in bed. No c/o pain. Agrees to therapy. Mental Status/Objective Patient Orientation: Person, Place, Time, Situation Functional [place] Measure 0=Not Assessed/NA 4=Minimal Assistance 1=Total Assistance 5=Supervision or Setup 2=Maximal Assistance 6=Modified [place] 3=Moderate Assistance 7=Complete [place] Attachments: IV ADL-Treatment Functional [place] Measure 0=Not Assessed/NA 4=Minimal Assistance 1=Total Assistance 5=Supervision or Setup 2=Maximal Assistance 6=Modified [place] 3=Moderate Assistance 7=Complete IndependenceIRFPAI Quality Coding Scale 6 Independent with activity with or without an assistive device 5 Patient requires set up or clean up by helper. Patient completes activity by themselves 4 Supervision or touching assist (CGA). [place] provide cues , steadying assist 3 The helper provides less than half the effort to complete the activity 2 The helper provides more than half the effort to complete the activity 1 Dependent. The helper does all the effort to complete an activity 7 Patient refused to complete or attempt activity 9 The patient did not perform the activity before the current illness or injury 88 Not attempted due to Medical conditions or safety concerns Other Treatment Pt performed 3 B UE exercises (that pt performs at home) with mod resistive theraband, 3 sets of 15 reps, to increase strength and activity tolerance for daily functional tasks. Pt reported that he performs 2 sets of 25, reminded to lower reps to 15 and perform 2-3 sets to increase accuracy and cardio workout. Pt educated on and performed 1 new exercise with theraband, reporting that he will add it to his routine. Pt educated on deep breathing techniques during exercise and the importance of rest breaks. Pt verbalized understanding. After therapy, pt sitting in bed with phone and call light in reach. present. All needs met. Education OT Patient Education: Energy conservation, Exercise program, Home exercise program Teaching Recipient: Patient Teaching Methods: Demonstration, Discussion Response to Teaching: Verbalize Understanding, Return Demonstration OT Short Term Goals Short Term Goals 1=Demonstrate adherence to instructed precautions during ADL tasks. 2=Patient will verbalize/demonstrate understanding of assistive devices/ modifications for ADL. 3=Patient will improve strength/tolerance for activity to enable patient to perform ADL's. OT [employer] Professional Goals K [employer] Professional Goals Time Frame: Jan 20, 2017 Pt will be independent in home exercise program for UE strengthening. Additional Goals: 3-ImproveStrength/[place] 1=Demonstrate adherence to instructed precautions during ADL tasks. 2=Patient will verbalize/demonstrate understanding of assistive devices/ modifications for ADL. 3=Patient will improve strength/tolerance for activity to enable patient to perform ADL's. OT Education/Plan Problem List/Assessment Pt seen for skilled OT to increase his independence in home exercise program to maintain and increase his strength and activity tolerance to allow him to safely return home to live with his . Discharge Recommendations Plan/Recommendations: Continue POC Treatment Plan/Plan of Care Patient would benefit from OT for education, treatment and training to promote independence in ADL's, mobility, safety and/or upper extremity function for ADL' s. Plan of Care: UE Funct Exercise/Act Treatment Duration: Jan 20, 2017 Frequency: 5 times per week Estimated Hrs Per Day: .25 hour per day Agreement: Yes Rehab Potential: Good Time/GCodes Start Time: 10:50 Stop Time: 11:10 Total Time Billed (hr/min): 20 Billed Treatment Time 1 visit, EX 1 (20 minutes) GREGORIO HUTTON Jan 14, 2017 11:23
[2017-01-14] MEDS: ALFUZOSIN HCL 10 MG TAB (UROXATRAL) PO SCH (18:08)
[2017-01-14 19:54] VITALS: BP 156/92
[2017-01-15] MEDS: metroNIDAZOLE 500MG/100ML IVPB 100 ML IV SCH (01:49)
[2017-01-15] MEDS: RT-ALBUTEROL SULF 2.5 MG/3 ML PRE-MIX VIAL IH SCH ×6 (02:24→22:22)
[2017-01-15] MEDS: SUCRALFATE 1 GM (CARAFATE) TAB PO SCH ×4 (06:18→20:39)
[2017-01-15] MEDS: KCL 10 MEQ TAB (MICRO K) PO SCH ×3 (06:18→16:50)
[2017-01-15 07:36] LABS: VITAMIN D 25-HYDROXY (TOTAL) 27 ng/mL (30-100)
[2017-01-15 08:00] VITALS: BP 152/81
--- NOTE | 2017-01-15 08:21 | Progress Note (SOAP) ---
Subjective Date Seen by Provider: Jan 15, 2017 Time Seen by Provider: 08:15 Subjective/Events-last exam PT REPORTS THAT HE IS FEELING BETTER TODAY - BUT DID HAVE SOME STREAKS OF RED IN HIS STOOL THIS MORNING. HE REPORTS THAT HIS ANKLES ARE SWOLLEN TODAY HE STATES THAT HIS SHORTNESS OF BREATH IS BETTER TODAY COMPARED TO YESTERDAY. Review of Systems General: Fatigue Pulmonary: Dyspnea Cardiovascular: Edema, No: Chest Pain Gastrointestinal: Other (BLOOD STREAK IN STOOL), No: Nausea, Abdominal Pain Genitourinary: No Dysuria Neurological: Weakness Objective Exam Vital Signs Date Time Temp Pulse Resp B/P (MAP) Pulse Ox O2 Delivery O2 Flow Rate FiO2 01/15/17 06:18 91 Room Air 01/15/17 02:24 92 Room Air 01/14/17 22:48 93 Room Air 01/14/17 19:54 98.9 95 20 156/92 95 Room Air 01/14/17 18:39 92 Room Air 01/14/17 15:04 92 Room Air 01/14/17 10:21 93 Room Air Capillary Refill : General Appearance: No Apparent Distress, WD/WN HEENT: PERRL/EOMI Neck: Full Range of Motion, Supple Respiratory: Decreased Breath Sounds, Wheezing Cardiovascular: Regular Rate, Rhythm Gastrointestinal: normal bowel sounds, soft, other ([place]) Neurologic/Psychiatric: Alert, Oriented x3, Normal Mood/Affect Skin: Warm/Dry Lymphatic: No Adenopathy Assessment/Plan Assessment/Plan Assess & Plan/Chief Complaint SIGMOID DIVERTICULITIS COLITIS LOWER GI BLEED ACUTE ON CHRONIC RENAL FAILURE - STAGE 4 UTI ELEVATED WHITE COUNT SEPSIS ELEVATING LACTIC ACID HYPOTENSION (CHRONIC HYPERTENSION) TACHYCARDIA HX OF EXTENSIVE ABDOMINAL WALL SURGERIES WITH LARGE VENTRAL HERNIA COPD SIGMOID DIVERTICULITIS AND COLITIS WITH ACUTE LOWER GI BLEED - PT ON FLAGYL AND ZOSYN -HEMATOCHEZIA HAS RESOLVED - IMPROVED ABDOMINAL PAIN - CONTINUE WITH ZOSYN. DISCUSSED WITH PHARMACY CONTINUE WITH ZOSYN AT 4.5 GRAM Q12 HOURS. ACUTE ON CHRONIC RENAL FAILURE - STAGE 4 - - WILL MONITOR CREATININE AND TREAT CONSERVATIVELY POSSIBLE WITH RENAL ADJUSTMENTS OF HIS MEDICATIONS. ELEVATED WHITE COUNT - IMPROVING - MONITOR WHITE COUNT, DAILY. UTI - ENTEROCOCCAL - PT ON ZOSYN. CONTINUE WITH CURRENT TREATMENT - WILL FINISH TREATMENT ON 01/16/17 SEPSIS - SYMPTOMS RESOLVED, DECREASE IV FLUIDS HYPOTENSION (CHRONIC HYPERTENSION) - BLOOD PRESSURE IMPROVED AFTER HYDRATING PATIENT, MONITOR BLOOD PRESSURE - RESTARTED TOPROL, PARAMETERS ON CLONIDINE AND NORVASC ADDED. TACHYCARDIA - MULTIFACTORIAL - CONTINUE WITH TOPROL. HX OF EXTENSIVE ABDOMINAL WALL SURGERIES WITH LARGE VENTRAL HERNIA - WE WILL TRY TO BE CONSERVATIVE POSSIBLE WITH ATTENTION TO HIS GI TRACT AND AVOIDANCE OF SURGERY. COPD - CHRONIC - OXYGEN DEPENDENT PER PREVIOUS PROVIDER NOTES. - PT TO HAVE A SOLUMEDROL INJECTION TODAY - CONTINUE WITH BREATHING TREATMENTS - MONITOR SYMPTOMS TOMORROW. DVT PROPHYLAXIS WITH SCD'S - NO LOVENOX DUE TO GI BLEEDING GI PROPHYLAXIS WITH PPI. Clinical Quality Measures DVT/VTE Risk/Contraindication: Risk Factor Score Per Nursin RFS Level Per Nursing on Admit: 4+=Very High Contraindications-Pharm: Other *list below* Other: PT HAD AN ACUTE GI BLEED SUNNY SAUCEDA MD Jan 15, 2017 08:21
[2017-01-15] MEDS: PANTOPRAZOLE 40 MG/10 ML (PROTONIX) VIAL IV SCH ×2 (08:55→20:39)
[2017-01-15] MEDS: cloNIDine 0.1 MG (CATAPRES) TAB PO SCH ×2 (08:56→20:39)
[2017-01-15] MEDS: ASPIRIN E.C. 81 MG (ECOTRIN) TAB PO SCH (08:56)
[2017-01-15] MEDS: FINASTERIDE (PROSCAR) 5 MG TAB PO SCH (08:56)
[2017-01-15] MEDS: DARIFENACIN 7.5 MG PO SCH (08:56)
[2017-01-15] MEDS: amLODIPine 5 MG (NORVASC) TAB PO SCH (08:56)
[2017-01-15] MEDS: meTOprolol TARTRATE 50 MG (LOPRESSOR) TAB PO SCH ×2 (08:56→20:39)
[2017-01-15] MEDS: POLYETHYLENE GLYCOL 17 GM (MIRALAX) PACK PO SCH ×3 (08:57→20:39)
[2017-01-15] MEDS ORDERED: VITAMIN D2 50,000 UNITS (1.25 MG) CAP PO SCH (09:00)
[2017-01-15] MEDS ORDERED: FUROSEMIDE 40 MG/4 ML INJ (LASIX) IVP NR (09:30)
[2017-01-15] MEDS: PIPERACILLIN SODIUM/TAZOBACTAM 4.5 GM in NS (IVPB) 100 ML IV SCH ×2 (10:30→22:18)
--- NOTE | 2017-01-15 11:30 | Physical Therapy Daily Note ---
PT Daily Note-Current Subjective Patient agrees to PT. Pain Numeric Pain Scale: 0-No Pain Location: No Pain Reported Mental Status Patient Orientation: Normal For Age Attachments: IV Transfers Functional [place] Measure 0=Not Assessed/NA 4=Minimal Assistance 1=Total Assistance 5=Supervision or Setup 2=Maximal Assistance 6=Modified [place] 3=Moderate Assistance 7=Complete IndependenceIRFPAI Quality Coding Scale 6 Independent with activity with or without an assistive device 5 Patient requires set up or clean up by helper. Patient completes activity by themselves 4 Supervision or touching assist (CGA). [place] provide cues , steadying assist 3 The helper provides less than half the effort to complete the activity 2 The helper provides more than half the effort to complete the activity 1 Dependent. The helper does all the effort to complete an activity 7 Patient refused to complete or attempt activity 9 The patient did not perform the activity before the current illness or injury 88 Not attempted due to Medical conditions or safety concerns Transfers (B, C, W/C) (FIM): 6 Scootin Roll Left to Right (QC): 5 Supine to/from Sit: 6 Sit to/from Stand: 6 Sit to Lying (QC): 5 Sit to Stand (QC): 5 Weight Bearing Right Lower Extremity: Right Full Weight Bearing Left Lower Extremity: Left Full Weight Bearing Gait Training Does the Patient Walk?: Yes Gait (FIM): 5 Distance (FIM): 3=150 ft Distance: 175' x 1; 275' x 1 Walk 50 ft with 2 Turns(QC): 4 Walk 150 ft (QC): 4 Gait Level of Assist: 5 Gait Persons Needed: 1 Gait Assistive Device: FWW slow, functional patient required multiple standing recovery periods due to increase SOA with activity. SAO2 remains >90% on RA. Assessment Patient tolerated treatment well. Gait training with FWW to improve pulmonary functional progressing slowly. PT to increase activity as tolerated by patient. PT Intermediate Goals Intermediate Goals Rollin PT Plan Treatment/Plan Treatment Plan: Continue Plan of Care Treatment Plan: Bed Mobility, Education, Functional Activity [place], Functional Strength, Gait, Safety, Therapeutic Exercise, Transfers Treatment Duration: Feb 06, 2017 Frequency: 6 times per week Estimated Hrs Per Day: .25 hour per day Patient and/or Family Agrees t: Yes Time/GCodes Time In: 1035 Time Out: 1059 Total Billed Treatment Time: 24 Total Billed Treatment 1 visit GT x 2 24 min IDALIA,RONALD PT Jan 15, 2017 11:29
--- NOTE | 2017-01-15 11:59 | Occupational Ther Daily Note ---
OT Current Status-Daily Note Subjective Pt sitting on EOB. No c/o pain. Agrees to therapy. Mental Status/Objective Patient Orientation: Person, Place, Time, Situation Functional [place] Measure 0=Not Assessed/NA 4=Minimal Assistance 1=Total Assistance 5=Supervision or Setup 2=Maximal Assistance 6=Modified [place] 3=Moderate Assistance 7=Complete [place] ADL-Treatment Functional [place] Measure 0=Not Assessed/NA 4=Minimal Assistance 1=Total Assistance 5=Supervision or Setup 2=Maximal Assistance 6=Modified [place] 3=Moderate Assistance 7=Complete IndependenceIRFPAI Quality Coding Scale 6 Independent with activity with or without an assistive device 5 Patient requires set up or clean up by helper. Patient completes activity by themselves 4 Supervision or touching assist (CGA). [place] provide cues , steadying assist 3 The helper provides less than half the effort to complete the activity 2 The helper provides more than half the effort to complete the activity 1 Dependent. The helper does all the effort to complete an activity 7 Patient refused to complete or attempt activity 9 The patient did not perform the activity before the current illness or injury 88 Not attempted due to Medical conditions or safety concerns Other Treatment Pt independently completed 3 sets x 15 reps of 4 B UE exercises using mod resistive theraband from [facility] to increase strength and activity tolerance for daily functional tasks. Pt took rest breaks in between exercises and demonstrated deep breathing techniques. No verbal cues required throughout therapy. After therapy, pt sitting on EOB with phone and call light in reach. All needs met. OT Short Term Goals Short Term Goals 1=Demonstrate adherence to instructed precautions during ADL tasks. 2=Patient will verbalize/demonstrate understanding of assistive devices/ modifications for ADL. 3=Patient will improve strength/tolerance for activity to enable patient to perform ADL's. OT Gang Tailer Goals Snf Goals Time Frame: Jan 20, 2017 Pt will be independent in home exercise program for UE strengthening. Additional Goals: 3-ImproveStrength/[place] 1=Demonstrate adherence to instructed precautions during ADL tasks. 2=Patient will verbalize/demonstrate understanding of assistive devices/ modifications for ADL. 3=Patient will improve strength/tolerance for activity to enable patient to perform ADL's. OT Education/Plan Problem List/Assessment Pt seen for skilled OT to increase his independence in home exercise program to maintain and increase his strength and activity tolerance to allow him to safely return home to live with his . Discharge Recommendations Plan/Recommendations: Continue POC Treatment Plan/Plan of Care Patient would benefit from OT for education, treatment and training to promote independence in ADL's, mobility, safety and/or upper extremity function for ADL' s. Plan of Care: UE Funct Exercise/Act Treatment Duration: Jan 20, 2017 Frequency: 5 times per week Estimated Hrs Per Day: .25 hour per day Agreement: Yes Rehab Potential: Good Time/GCodes Start Time: 11:40 Stop Time: 11:56 Total Time Billed (hr/min): 16 Billed Treatment Time 1 visit, EX 1 (16 minutes) GREGORIO HUTTON Jan 15, 2017 11:59
[2017-01-15] MEDS: ALFUZOSIN HCL 10 MG TAB (UROXATRAL) PO SCH (16:50)
[2017-01-15 20:27] VITALS: BP 124/75
[2017-01-16] MEDS: RT-ALBUTEROL SULF 2.5 MG/3 ML PRE-MIX VIAL IH SCH ×3 (03:06→10:39)
[2017-01-16 06:03] LABS: MEAN PLATELET VOLUME 9.9 FL (7.4-10.4); RED BLOOD COUNT 3.26 10^6/uL (4.35-5.85); RED CELL DISTRIBUTION WIDTH 13.4 % (10.0-14.5)
[2017-01-16] MEDS: KCL 10 MEQ TAB (MICRO K) PO SCH ×2 (06:23→11:11)
[2017-01-16] MEDS: SUCRALFATE 1 GM (CARAFATE) TAB PO SCH ×2 (06:23→11:11)
[2017-01-16 06:28] LABS: ALBUMIN 2.9 GM/DL (3.2-4.5); BILIRUBIN,TOTAL 0.3 MG/DL (0.1-1.0); CALCIUM 8.2 MG/DL (8.5-10.1); CREATININE SERUM 2.55 MG/DL (0.60-1.30); POTASSIUM 3.5 MMOL/L (3.6-5.0); TOTAL PROTEIN 5.5 GM/DL (6.4-8.2)
[2017-01-16 08:00] VITALS: BP 142/78
[2017-01-16] MEDS: PANTOPRAZOLE 40 MG/10 ML (PROTONIX) VIAL IV SCH (08:27)
[2017-01-16] MEDS: ASPIRIN E.C. 81 MG (ECOTRIN) TAB PO SCH (08:28)
[2017-01-16] MEDS: meTOprolol TARTRATE 50 MG (LOPRESSOR) TAB PO SCH (08:28)
[2017-01-16] MEDS: DARIFENACIN 7.5 MG PO SCH (08:28)
[2017-01-16] MEDS: cloNIDine 0.1 MG (CATAPRES) TAB PO SCH (08:28)
[2017-01-16] MEDS: FINASTERIDE (PROSCAR) 5 MG TAB PO SCH (08:28)
[2017-01-16] MEDS: amLODIPine 5 MG (NORVASC) TAB PO SCH (08:28)
[2017-01-16] MEDS: POLYETHYLENE GLYCOL 17 GM (MIRALAX) PACK PO SCH (08:29)
[2017-01-16] MEDS ORDERED: PANTOPRAZOLE 40 MG (PROTONIX) TAB PO SCH (09:00)
--- NOTE | 2017-01-16 09:47 | Physical Therapy Daily Note ---
PT Daily Note-Current Subjective Patient agrees to PT. He states he is hoping to go home today. Pain Numeric Pain Scale: 0-No Pain Location: No Pain Reported Mental Status Patient Orientation: Normal For Age Transfers Functional [place] Measure 0=Not Assessed/NA 4=Minimal Assistance 1=Total Assistance 5=Supervision or Setup 2=Maximal Assistance 6=Modified [place] 3=Moderate Assistance 7=Complete IndependenceIRFPAI Quality Coding Scale 6 Independent with activity with or without an assistive device 5 Patient requires set up or clean up by helper. Patient completes activity by themselves 4 Supervision or touching assist (CGA). [place] provide cues , steadying assist 3 The helper provides less than half the effort to complete the activity 2 The helper provides more than half the effort to complete the activity 1 Dependent. The helper does all the effort to complete an activity 7 Patient refused to complete or attempt activity 9 The patient did not perform the activity before the current illness or injury 88 Not attempted due to Medical conditions or safety concerns Transfers (B, C, W/C) (FIM): 6 Scootin Roll Left to Right (QC): 5 Supine to/from Sit: 6 Sit to/from Stand: 6 Sit to Lying (QC): 5 Sit to Stand (QC): 5 Chair/Ccd-uv-Rpaiq Xfer(QC): 5 Bed to/from Chair: 6 Weight Bearing Right Lower Extremity: Right Full Weight Bearing Left Lower Extremity: Left Full Weight Bearing Gait Training Does the Patient Walk?: Yes Gait (FIM): 6 Distance (FIM): 3=150 ft Distance: 400' Walk 50 ft with 2 Turns(QC): 5 Walk 150 ft (QC): 5 Gait Level of Assist: 6 Gait Assistive Device: FWW steady and safe multiple standing recovery periods due to SOA Assessment Current Status: Excellent Progress Patient has improved with functional mobility and desires to return to home on this date. PT Group Home Goals Sewage Plant Supervisor Goals Rollin PT Plan Treatment/Plan Treatment Plan: Continue Plan of Care Treatment Plan: Bed Mobility, Education, Functional Activity [place], Functional Strength, Gait, Safety, Therapeutic Exercise, Transfers Treatment Duration: Feb 06, 2017 Frequency: 6 times per week Estimated Hrs Per Day: .25 hour per day Patient and/or Family Agrees t: Yes Time/GCodes Time In: 916 Time Out: 932 Total Billed Treatment Time: 16 Total Billed Treatment 1 visit FA 16 min RONALD FRIEDMAN PT Jan 16, 2017 09:47
--- NOTE | 2017-01-16 09:51 | Physical Therapy Daily Note ---
PT Daily Note-Current Transfers Functional [place] Measure 0=Not Assessed/NA 4=Minimal Assistance 1=Total Assistance 5=Supervision or Setup 2=Maximal Assistance 6=Modified [place] 3=Moderate Assistance 7=Complete IndependenceIRFPAI Quality Coding Scale 6 Independent with activity with or without an assistive device 5 Patient requires set up or clean up by helper. Patient completes activity by themselves 4 Supervision or touching assist (CGA). [place] provide cues , steadying assist 3 The helper provides less than half the effort to complete the activity 2 The helper provides more than half the effort to complete the activity 1 Dependent. The helper does all the effort to complete an activity 7 Patient refused to complete or attempt activity 9 The patient did not perform the activity before the current illness or injury 88 Not attempted due to Medical conditions or safety concerns Weight Bearing Right Lower Extremity: Right Full Weight Bearing Left Lower Extremity: Left Full Weight Bearing PT Tie Maker Goals Tie Maker Goals PT Skilled Nursing Goals Time Frame: Feb 06, 2017 Transfers (B,C,W/C) (FIM): 6 (met 01/16/17) Sit to Lying (QC): 5 (met 01/16/17) Lying-Sitting on Side/Bed(QC): 5 (met 01/16/17) Sit to Stand (QC): 5 (met 01/16/17) Rollin (met 01/16/17) Chair/Thc-bx-Wqizp Xfer(QC): 5 (met 01/16/17) Does the Patient Walk: Yes Gait (FIM): 6 (met 01/16/17) Walk 50ft with 2 Turns (QC): 5 (met 01/16/17) Walk 150 ft (QC): 5 (met 01/16/17) Gait Level of Assist: 6 (met 01/16/17) Gait Assistive Device: FWW Error on evaluation with goal setting PT Plan Treatment/Plan Treatment Plan: Continue Plan of Care Treatment Plan: Bed Mobility, Education, Functional Activity [place], Functional Strength, Gait, Safety, Therapeutic Exercise, Transfers Treatment Duration: Feb 06, 2017 Frequency: 6 times per week Estimated Hrs Per Day: .25 hour per day Patient and/or Family Agrees t: Yes Time/GCodes Time In: 949 Time Out: 949 Total Billed Treatment Time: 1 Total Billed Treatment LTG RONALD FRIEDMAN PT Jan 16, 2017 09:51
[2017-01-16] MEDS ORDERED: PANT40TA3 PO (09:52)
[2017-01-16] MEDS ORDERED: ERGO50006 PO (09:52)
[2017-01-16] MEDS ORDERED: SUCR1TAB PO (09:52)
--- NOTE | 2017-01-16 09:52 | Discharge Inst-Complex ---
PDI Med Rec & Follow Up Appt. New Medications: Ergocalciferol (Vitamin D2) (Vitamin D2) 50,000 Unit Capsule 34850 UNITS PO Th@09 for 14 Days, #14 CAP TAKE ONE TIME A WEEK X 14 WEEKS Pantoprazole Sodium (Pantoprazole Sodium) 40 Mg Tablet.dr 40 MG PO BID@0700,1700 for 30 Days, #60 TAB 3 Refills Sucralfate (Sucralfate) 1 Gm Tablet 1 GM PO ACHS for 30 Days, #120 TAB 3 Refills DISSOLVE IN 10ML OF WATER PRIOR TO TAKING THIS MEDICATION Continued Medications: Albuterol Sulfate (Proair Hfa) 1 Puff Puff 2 PUFF IH Q4H PRN for SHORTNESS OF BREATH, PUFF 1 PUFF = 90 MCG Amlodipine Besylate (Amlodipine Besylate) 5 Mg Tablet 5 MG PO DAILY, TAB Aspirin (Aspirin EC) 81 Mg Tablet.dr 81 MG PO Q48H, TAB Clonidine HCl (Clonidine HCl) 0.2 Mg Tablet 0.1 MG PO BID, TAB TAKES 1/2 (0.2MG) TABLET Finasteride (Finasteride) 5 Mg Tablet 5 MG PO DAILY, TAB Metoprolol Tartrate (Metoprolol Tartrate) 50 Mg Tablet 50 MG PO BID, TAB-CAP Multivitamin (Daily Multiple Vitamin) 1 Each Tablet 1 TAB PO DAILY, TAB [place] 3 Polyunsat Fatty Acids (Fish Oil 1,000 mg Capsule) 1,000 Mg Cap 1000 MG PO DAILY, CAP Polyethylene Glycol 3350 (Miralax) 17 Gm Powd.pack 17 GM PO DAILY, EACH Sennosides/Docusate Sodium (Senna-S Tablet) 1 Each Tablet 1 TAB PO BID PRN for CONSTIPATION-6TH LINE, TAB Simvastatin (Simvastatin) 20 Mg Tablet 20 MG PO DAILY, TAB Tamsulosin HCl (Tamsulosin HCl) 0.4 Mg Cap.er.24h 0.4 MG PO DAILY, CAP Vit B2/Niacin/B-6/B-12/D-Panth (B Complex Sublingual Liquid) 59 Ml Liquid 1 ML SL DAILY, EA Zolpidem Tartrate (Zolpidem Tartrate) 5 Mg Tablet 5 MG PO HS PRN for INSOMNIA, TAB Prescription: Transmitted to Pharmacy Activity, Diet and PDI Resume Normal Activity: Yes Discharge Diet: Regular Diet Drink 6-8 Glasses of Fluid/Day: Yes Driving Instructions: You May Drive Symptoms to Reoprt to Dr.: Appetite Changes, Constipation(Persistant), Fever Over 101 Degrees F, Pain/Pressure in Chest, Cough Up/Vomit Blood, Dizziness/ Fainting For Problems or Questions: Contact Your Physician, Go to Emergency Room SUNNY SAUCEDA MD Jan 16, 2017 09:52
--- NOTE | 2017-01-16 09:54 | Discharge Summary ---
Diagnosis/Chief Complaint Date of Admission Jan 13, 2017 at 08:56 Date of Discharge Discharge Date: Jan 16, 2017 Discharge Time: 1030 Discharge Summary Discharge Physical Examination Allergies: Coded Allergies: Penicillins (Unverified Allergy, Unknown, RASH, 08/08/13) bethanechol (Unverified Allergy, Unknown, DIFFICULTY BREATHING, 08/08/13) oxycodone HCl (Unverified Allergy, Unknown, 08/08/13) HALLUNCIATIONS Vitals & I&Os Vital Signs Date Time Temp Pulse Resp B/P (MAP) Pulse Ox O2 Delivery O2 Flow Rate FiO2 01/16/17 08:00 Room Air 01/16/17 08:00 99.6 101 24 142/78 93 01/13/17 10:54 21 Hospital Course Pending Labs Laboratory Tests 01/16/17 05:25: White Blood Count 10.0, Red Blood Count 3.26, Hemoglobin 10.6, Hematocrit 33, Mean Corpuscular Volume 100, Mean Corpuscular Hemoglobin 33, Mean Corpuscular Hemoglobin Concent 33, Red Cell Distribution Width 13.4, Platelet Count 234, Mean Platelet Volume 9.9, Sodium Level 139, Potassium Level 3.5, Chloride Level 111, Carbon Dioxide Level 18, Anion Gap 10, Blood Urea Nitrogen 19, Creatinine 2.55, Estimat Glomerular Filtration Rate 24, BUN/Creatinine Ratio 7, Glucose Level 104, Calcium Level 8.2, Total Bilirubin 0.3, Aspartate Amino Transf (AST/ SGOT) 18, Alanine Aminotransferase (ALT/SGPT) 23, Alkaline Phosphatase 41, Total Protein 5.5, Albumin 2.9 Discharge Instructions to patient/family Please see electronic discharge instructions given to patient. Discharge Medications Reviewed and agree with Discharge Medication list on patient's Discharge Instruction sheet Clinical Quality Measures DVT/VTE Risk/Contraindication: Risk Factor Score Per Nursin RFS Level Per Nursing on Admit: 4+=Very High Contraindications-Pharm: Other *list below* Other: PT HAD AN ACUTE GI BLEED SUNNY SAUCEDA MD Jan 16, 2017 09:54
--- NOTE | 2017-01-16 11:47 | Therapy Team Discharge Summary ---
Therapy Discharge Summary Discharge Recommendations Date of Discharge Therapy D/C Recommendations: Home w/ Family Support Physical Therapy Patient dismissed to home with spouse at [facility] with all gross motor skills safely. Patient utilized a FWW while in the hospital and reports he will continue at home. Patient has attained all functional goals set for PT. Occupational Therapy Decreased Activ Tolerance, Decreased UE Strength PT Heat Treat Operator Goals Fci Goals PT Heat Treat Operator Goals Time Frame: Feb 06, 2017 Transfers (B,C,W/C) (FIM): 6 (met 01/16/17) Sit to Lying (QC): 5 (met 01/16/17) Lying-Sitting on Side/Bed(QC): 5 (met 01/16/17) Sit to Stand (QC): 5 (met 01/16/17) Rollin (met 01/16/17) Chair/Vcl-ev-Lglzl Xfer(QC): 5 (met 01/16/17) Does the Patient Walk: Yes Gait (FIM): 6 (met 01/16/17) Walk 50ft with 2 Turns (QC): 5 (met 01/16/17) Walk 150 ft (QC): 5 (met 01/16/17) Gait Level of Assist: 6 (met 01/16/17) Gait Assistive Device: FWW OT Fci Goals Heat Treat Operator Goals Time Frame: Jan 20, 2017 Pt will be independent in home exercise program for UE strengthening. Additional Goals: 3-ImproveStrength/[place] 1=Demonstrate adherence to instructed precautions during ADL tasks. 2=Patient will verbalize/demonstrate understanding of assistive devices/ modifications for ADL. 3=Patient will improve strength/tolerance for activity to enable patient to perform ADL's. RONALD FRIEDMAN PT Jan 16, 2017 11:47
[2017-01-16 12:26] VITALS: BP 142/78
--- NOTE | 2017-01-16 14:54 | Occupational Ther Daily Note ---
OT Current Status-Daily Note Subjective Pt seen in room, up in bed, agreeable to OT. No pain mentioned. Appearance Alert, cooperative Mental Status/Objective Functional [place] Measure 0=Not Assessed/NA 4=Minimal Assistance 1=Total Assistance 5=Supervision or Setup 2=Maximal Assistance 6=Modified [place] 3=Moderate Assistance 7=Complete [place] ADL-Treatment Functional [place] Measure 0=Not Assessed/NA 4=Minimal Assistance 1=Total Assistance 5=Supervision or Setup 2=Maximal Assistance 6=Modified [place] 3=Moderate Assistance 7=Complete IndependenceIRFPAI Quality Coding Scale 6 Independent with activity with or without an assistive device 5 Patient requires set up or clean up by helper. Patient completes activity by themselves 4 Supervision or touching assist (CGA). [place] provide cues , steadying assist 3 The helper provides less than half the effort to complete the activity 2 The helper provides more than half the effort to complete the activity 1 Dependent. The helper does all the effort to complete an activity 7 Patient refused to complete or attempt activity 9 The patient did not perform the activity before the current illness or injury 88 Not attempted due to Medical conditions or safety concerns Eating (FIM): 6 (Pt report, able to open packages and feed himself with no difficulty) Eating (QC): 6 (Pt report, able to open packages and feed himself with no difficulty) Grooming (FIM): 6 (Pt reported he washes hands and face, cleans teeth, brushes hair by himself in the bathroom) Oral Hygiene (QC): 6 (Pt reported he washes hands and face, cleans teeth, brushes hair by himself in the bathroom) Toileting (FIM): 6 (Pt reported he get on/off toilet, using grab bars, without assistance and manages clothing and hygiene. ) Toileting Hygiene (QC): 6 (Pt reported he get on/off toilet, using grab bars, without assistance and manages clothing and hygiene. ) Toilet/Commode Transfer (FIM): 6 (Pt reported he get on/off toilet, using grab bars, without assistance and manages clothing and hygiene. ) Toilet Transfer (QC): 6 (Pt reported he get on/off toilet, using grab bars, without assistance and manages clothing and hygiene. ) Other Treatment Pt demonstrated independence in UE exercise program using red theraband. He did 15 reps each exercise, including one additional one taught to him, and verbalized that he does 2 additional sets, resting between as needed. He was encouraged to slowly build back up to his green and blue therabands that he has at home and to take recovery breaks as he needs. Pt educ energy conservation techniques, which he verbalized understanding. Goal met, DC OT. No continued OT recommended Education OT Patient Education: Energy conservation, Exercise program Teaching Recipient: Patient Teaching Methods: Discussion Response to Teaching: Verbalize Understanding OT Short Term Goals Short Term Goals 1=Demonstrate adherence to instructed precautions during ADL tasks. 2=Patient will verbalize/demonstrate understanding of assistive devices/ modifications for ADL. 3=Patient will improve strength/tolerance for activity to enable patient to perform ADL's. OT Nursing Home Goals Enterprise Integration Architect Goals Time Frame: Jan 20, 2017 Pt will be independent in home exercise program for UE strengthening. Additional Goals: 3-ImproveStrength/[place] 1=Demonstrate adherence to instructed precautions during ADL tasks. 2=Patient will verbalize/demonstrate understanding of assistive devices/ modifications for ADL. 3=Patient will improve strength/tolerance for activity to enable patient to perform ADL's. OT Education/Plan Problem List/Assessment Pt seen for skilled OT to increase his independence in home exercise program to maintain and increase his strength and activity tolerance to allow him to safely return home to live with his . Discharge Recommendations Plan/Recommendations: Discharge/Goals Met Treatment Plan/Plan of Care Patient would benefit from OT for education, treatment and training to promote independence in ADL's, mobility, safety and/or upper extremity function for ADL' s. Plan of Care: UE Funct Exercise/Act Treatment Duration: Jan 20, 2017 Frequency: 5 times per week Estimated Hrs Per Day: .25 hour per day Agreement: Yes Rehab Potential: Good Time/GCodes Start Time: 08:35 Stop Time: 08:50 Total Time Billed (hr/min): 15 Billed Treatment Time visit, 15 minutes exercise JUNG CONTI OT Jan 16, 2017 14:54
--- NOTE | 2017-01-16 14:57 | Therapy Team Discharge Summary ---
Therapy Discharge Summary Discharge Recommendations Date of Discharge Jan 16, 2017 at 12:29 Therapy D/C Recommendations: Home w/ Family Support Occupational Therapy Pt seen for skilled OT to increase independence in UE exercise program for strengthening but also activity tolerance and energy conservation. Pt demonstrated indep in ex program and modified it to adjust for decreased activity tolerance. Goal met. No cont OT recommended. DC OT. Decreased Activ Tolerance, Decreased UE Strength PT Microbiology Soil Scientist Goals Fci Goals PT Fci Goals Time Frame: Feb 06, 2017 Transfers (B,C,W/C) (FIM): 6 (met 01/16/17) Sit to Lying (QC): 5 (met 01/16/17) Lying-Sitting on Side/Bed(QC): 5 (met 01/16/17) Sit to Stand (QC): 5 (met 01/16/17) Rollin (met 01/16/17) Chair/Bpz-eu-Zqkwy Xfer(QC): 5 (met 01/16/17) Does the Patient Walk: Yes Gait (FIM): 6 (met 01/16/17) Walk 50ft with 2 Turns (QC): 5 (met 01/16/17) Walk 150 ft (QC): 5 (met 01/16/17) Gait Level of Assist: 6 (met 01/16/17) Gait Assistive Device: FWW OT [facility]ci Goals Microbiology Soil Scientist Goals Time Frame: Jan 20, 2017 Pt will be independent in home exercise program for UE strengthening. - met 01-16 Additional Goals: 3-ImproveStrength/[place] 1=Demonstrate adherence to instructed precautions during ADL tasks. 2=Patient will verbalize/demonstrate understanding of assistive devices/ modifications for ADL. 3=Patient will improve strength/tolerance for activity to enable patient to perform ADL's. JUNG CONTI OT Jan 16, 2017 14:57
== END 2017-01-16 12:29 | disposition home or self-care (01) | DRG 871 ==
LOC: 4TH 08:56
PROVIDERS: ADMIT Family Medicine; ATTEND Family Medicine
DX: A41.9 Sepsis, unspecified organism (principal); K57.33 Diverticulitis of large intestine without perforation or abscess with bleeding; K55.9 Vascular disorder of intestine, unspecified; A04.9 Bacterial intestinal infection, unspecified; N39.0 Urinary tract infection, site not specified; B95.2 Enterococcus as the cause of diseases classified elsewhere; N17.9 Acute kidney failure, unspecified; I12.9 Hypertensive chronic kidney disease with stage 1 through stage 4 chronic kidney disease, or unspecified chronic kidney disease; N18.4 Chronic kidney disease, stage 4 (severe); I95.9 Hypotension, unspecified; K43.2 Incisional hernia without obstruction or gangrene; J44.9 Chronic obstructive pulmonary disease, unspecified; J30.2 Other seasonal allergic rhinitis; F17.290 Nicotine dependence, other tobacco product, uncomplicated; E78.00 Pure hypercholesterolemia, unspecified; I73.9 Peripheral vascular disease, unspecified; E87.6 Hypokalemia; N40.1 Benign prostatic hyperplasia with lower urinary tract symptoms; R39.15 Urgency of urination; M19.91 Primary osteoarthritis, unspecified site; Z86.14 Personal history of Methicillin resistant Staphylococcus aureus infection; Z86.79 Personal history of other diseases of the circulatory system; Z95.820 Peripheral vascular angioplasty status with implants and grafts; Z99.81 Dependence on supplemental oxygen; Z98.890 Other specified postprocedural states
CPT/HCPCS: 36415; 80053; 82306; 82607; 85027; 94640; 94760

== ENCOUNTER 2017-02-12 10:05 | Outpatient (CLI) | payer MEDICARE ==
[~2017-02-12] VITALS: Ht 162.6 cm; Wt 61.0 kg
[~2017-02-12 10:05] MED LIST changes: +ERGO50006 PO; +PANT40TA3 PO; +SUCR1TAB PO
[2017-02-12 10:17] VITALS: BP 135/77
[2017-02-12] MEDS ORDERED: FAMO20TA3 PO (10:22)
[2017-02-12] MEDS ORDERED: DOCU-238 PO (10:22)
[2017-02-12] MEDS ORDERED: DARI15TA PO (10:22)
== END 2017-02-12 11:13 | disposition home or self-care (01) ==
LOC: PREOP 10:05
PROVIDERS: ATTEND Urology
DX: Z01.818 Encounter for other preprocedural examination (principal); N13.5 Crossing vessel and stricture of ureter without hydronephrosis
CPT/HCPCS: 87081

== ENCOUNTER → 2018-03-23 | Outpatient (CLI) | payer MEDICARE ==
[~2018-03-23] MED LIST changes: +ALBU2.5V4 IH; +AMLO5TAB7 PO; +DOCU-238 PO; +FAMO20TA3 PO; +METO50TA15 PO; -METO50TA2 PO
--- NOTE | 2018-03-23 14:47 | Diagnostic Imaging Report ---
EXAMINATION: Supine abdomen at 02:53 p.m. INDICATION: Right-sided stent. FINDINGS: The CT abdomen/pelvis exam of 01/07/2017 showed a ureteral stent in place on the right. The stent is again visualized on this exam. The stent seems to be in good position. There is a considerable amount of gas in both the large and small bowel and there is a large amount of fecal material in the ascending, transverse, and descending colon. The bowel gas pattern is nonspecific. There is no sign of bowel obstruction. There is no mass, organomegaly, or pathological calcification evident. 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 There is no acute bony abnormality noted. IMPRESSION: 1. The right-sided ureteral stent seen previously is again evident and seems stable in position. 2. The bowel gas pattern is nonspecific. There is no acute abnormality noted. 3. There is a considerable amount of fecal material throughout most of the colon. Dictated by: Dictated on workstation # [id number]
== END ==
LOC: RAD 14:20
PROVIDERS: ATTEND Urology
DX: R31.9 Hematuria, unspecified (principal); Z96.0 Presence of urogenital implants
CPT/HCPCS: 74018

== ENCOUNTER 2018-04-20 05:33 | Outpatient (CLI) | payer MEDICARE ==
[~2018-04-20] VITALS: Ht 162.6 cm; Wt 58.3 kg
[2018-04-20] MEDS ORDERED: POLY17PO6 PO (09:55)
[2018-04-21] MEDS ORDERED: SULF1TAB35 PO (10:21)
== END 2018-04-20 10:04 | disposition home or self-care (01) ==
LOC: PREOP 05:33
PROVIDERS: ATTEND Urology
DX: Z01.818 Encounter for other preprocedural examination (principal)

== ENCOUNTER 2018-04-21 08:18 | Day surgery (SDC) | payer MEDICARE ==
[~2018-04-21] VITALS: Ht 162.6 cm; Wt 58.3 kg
[2018-04-21] MEDS ORDERED: LACTATED RINGERS 1,000 ML IV PRN (08:20)
[2018-04-21] MEDS ORDERED: LEVOFLOXACIN 500 MG/100 ML IV 100 ML IV ONE (08:30)
--- NOTE | 2018-04-21 09:02 | Progress Note-Pre Operative ---
Pre-Operative Progress Note H&P Reviewed The H&P was reviewed, patient examined and no changes noted. Date Seen by Provider: Apr 21, 2018 Time Seen by Provider: 09:02 Date H&P Reviewed: Apr 21, 2018 Time H&P Reviewed: 09:02 Pre-Operative Diagnosis: RT URETERAL OBSTRUCTION YESSICA ALFORD MD Apr 21, 2018 09:02
--- NOTE | 2018-04-21 09:05 | Diagnostic Imaging Report ---
INDICATION: Ureteral obstruction KUB 9:05 AM There is a right double-J ureteral stent in place. There is a large amount of stool throughout the colon. Bowel gas pattern is normal. There are postsurgical changes in the right inguinal area that may be from hernia repair. IMPRESSION: Fecal stasis. Right double-J ureteral stent appears to be in appropriate position. Dictated by: Dictated on workstation # [id number]
--- NOTE | 2018-04-21 09:08 | Progress Note-Post Operative ---
Post-Operative Progess Note Surgeon (s)/Flight Control Tower Operator (s) Surgeon YESSICA ALFORD MD Flight Control Tower Operator: NONE Pre-Operative Diagnosis RT URETERAL OBSTRUCTION Post-Operative Diagnosis SAME Procedure & Operative Findings Date of Procedure 04/21/18 Procedure Performed/Findings CYSTOSCOPY AND CHANGE RT STENT Anesthesia Type GENERAL Estimated Blood Loss Estimated blood loss (mL): NONE Specimens/Packing Specimens Removed STENT Packing: NONE YESSICA ALFORD MD Apr 21, 2018 09:08
--- NOTE | 2018-04-21 09:09 | Discharge Inst-Urology ---
Discharge Inst-Urology Discharge Medications New, Converted, or Re-newed RX: RX on Chart Patient Instructions/Follow Up Plan Please make appointment to been seen in office in 3 months. Increase oral fluids for 48 hours and then as needed. Diet and Activity as tolerated. If questions or concerns contact your physician Or seek help at emergency department. YESSICA ALFORD MD Apr 21, 2018 09:09
[2018-04-21] MEDS ORDERED: LIDOCAINE PF 2% 5 ML (XYLOCAINE) VIAL ONE (09:13)
[2018-04-21] MEDS ORDERED: proPOfol 200 MG/20 ML (DIPRIVAN) VIAL IV ONE (09:13)
[2018-04-21] MEDS ORDERED: SEVOFLURANE (ULTANE) 15 ML INHAL SOLN ONE (09:13)
[2018-04-21] MEDS ORDERED: fentaNYL INJECTION 100 MCG/2 ML AMP ONE (09:14)
[2018-04-21] MEDS ORDERED: RT-ALBUTEROL SULF 2.5 MG/3 ML PRE-MIX VIAL INH ONE (09:30)
[2018-04-21] MEDS ORDERED: DEXAMETHASONE 10 MG/ML (DECADRON) 1 ML VIAL ONE (09:59)
[2018-04-21] MEDS ORDERED: ONDANSETRON 4 MG/2 ML (SDV) Z0FRAN ONE (09:59)
[2018-04-21] MEDS ORDERED: SULF1TAB35 PO (10:21)
[2018-04-21] MEDS ORDERED: ONDANSETRON 4 MG/2 ML (SDV) Z0FRAN IVP PRN (10:30)
[2018-04-21] MEDS ORDERED: morphine INJ 10 MG/ML 1ML (SYR OR VIAL) IVP ONE (10:30)
[2018-04-21 11:05] VITALS: BP 155/82
--- NOTE | 2018-04-21 11:20 | Diagnostic Imaging Report ---
Indication: Ureteral obstruction Impression: 56 seconds of fluoroscopy 2 digital images were obtained in surgery by Dr. Bassett. Dictated by: Dictated on workstation # [id number]
[2018-04-21 11:35] VITALS: BP 155/86
--- NOTE | 2018-04-21 11:52 | Anesthesia-General Post-Op ---
MAC Patient Condition Mental Status/LOC: Same as Preop Cardiovascular: Satisfactory Nausea/Vomiting: Absent Respiratory: Satisfactory Pain: Controlled Complications: Absent Post Op Complications Complications None Follow Up Care/Instructions Patient Instructions None needed. Anesthesiology Discharge Order Discharge Order Patient is doing well, no complaints, stable vital signs, no apparent adverse anesthesia problems. No complications reported per nursing. DANNY WRAY CRNA Apr 21, 2018 11:52
[2018-04-21 12:05] VITALS: BP 163/83
--- NOTE | 2018-04-21 21:00 | OPERATIVE REPORT ---
DATE OF SERVICE: 04/21/2018 PREOPERATIVE DIAGNOSIS: Right ureteral obstruction. POSTOPERATIVE DIAGNOSIS: Right ureteral obstruction. OPERATIONS PERFORMED: Cystoscopy and changing of right stent. SURGEON: Mykel Alford MD. ANESTHESIA: General. COMPLICATIONS: None. PROCEDURE: Under satisfactory general anesthesia, the patient in lithotomy position, genitalia were prepped and draped in the usual sterile fashion. The cystoscope was introduced under vision, the bladder was irrigated, because it was kind of cloudy and had some sediments. It was irrigated to clear. Stent was visualized, distal end. There was trabeculation in the bladder, but no carcinoma in situ, stone or bladder tumors. The distal end of the stent was grasped with a grasping forceps and removed. Then, a #6-Cambodian 26 cm stent was passed into the orifice and guided fluoroscopically all the way up to the right renal pelvis. Guidewire was removed and the stent was seen draining nicely proximally fluoroscopically and distally endoscopically. The bladder was evacuated and the cystoscope was removed. The patient tolerated the procedure and anesthesia well and was sent to the recovery room in stable condition. Job ID: [id number] DocumentID: [id number] Dictated Date: 04/21/2018 10:13:56 Informatics Application Analyst Date: 04/21/2018 14:27:45 Dictated By: MYKEL ALFORD MD
== END 2018-04-21 12:30 | disposition home or self-care (01) ==
LOC: SDC 08:18
PROVIDERS: ATTEND Urology
DX: N13.5 Crossing vessel and stricture of ureter without hydronephrosis (principal); Z11.2 Encounter for screening for other bacterial diseases; N40.0 Benign prostatic hyperplasia without lower urinary tract symptoms; J44.9 Chronic obstructive pulmonary disease, unspecified; I25.10 Atherosclerotic heart disease of native coronary artery without angina pectoris; E78.5 Hyperlipidemia, unspecified; I10 Essential (primary) hypertension; I73.9 Peripheral vascular disease, unspecified; Z79.82 Long term (current) use of aspirin; Z79.899 Other long term (current) drug therapy
CPT/HCPCS: 74018; 87081; 94640